=== PATIENT | male | born 1970 | race African-American/Black ===

== ENCOUNTER 2022-05-17 11:48 | Emergency (ER) | payer MEDICARE, SELFPAY ==
[2022-05-17 12:47] VITALS: BP 181/110; PULSE 78; RESP 18; TEMP 36.4; O2SAT 97
--- NOTE | 2022-05-17 13:40 | ED.GENADULT ---
HPI - General Adult General Chief complaint: Skin/Abscess/Foreign Body Stated complaint: small bites on arms Time Seen by Provider: 05/17/22 13:05 Mode of arrival: ambulatory Limitations: no limitations History of Present Illness HPI narrative: Patient lives alone, presents with itching skin rash different parts of his body right wrist, left hand dorsally, 3 spots on the abdomen and the chest 6 spots on the lower extremities. Patient reports having a lot of roaches at home. Denies history of allergy. He denies any fever, chills, nausea, vomiting. Related Data Allergies Allergy/AdvReac Type Severity Reaction Status Date / Time No Known Allergies Allergy Verified 05/17/22 13:07 Review of Systems Review of Systems: All systems reviewed & are unremarkable except as noted in HPI and below Exam Narrative: General appearance: Well-developed, well-nourished Skin: Normal color, scattered macules on the upper and lower extremities, chest and abdomen, itchy, nontender, looks like bedbug bites Head: Normocephalic, nontraumatic Eyes: Clear conjunctiva ENT: Oropharynx normal, ears normal, nose normal Neck: Supple, nontender Chest and respiratory: Airway patent, no respiratory distress, no accessory muscle use Heart: Regular rate/rhythm Abdomen: Soft, nontender, no organomegaly, quiet bowel sounds Vascular: Normal peripheral pulses, normal capillary refill. Musculoskeletal: Normal range of motion, nontender back Neurologic: Alert and oriented ?3, JEWEL STRIPPER is normal as tested, no gross motor deficit Course Vital Signs Vital signs: Vital Signs Temperature 36.4 C L 05/17/22 12:47 Pulse Rate 78 05/17/22 12:47 Respiratory Rate 18 05/17/22 12:47 Blood Pressure 181/110 H 05/17/22 12:47 Pulse Oximetry 97 05/17/22 12:47 Oxygen Delivery Room Air 05/17/22 12:47 Temperature 36.4 C L 05/17/22 12:47 Pulse Rate 78 05/17/22 12:47 Respiratory Rate 18 05/17/22 12:47 Blood Pressure 181/110 H 05/17/22 12:47 Pulse Oximetry 97 05/17/22 12:47 Oxygen Delivery Room Air 05/17/22 12:[address] [facility] Narrative Medical decision making narrative: Physical examination showing skin rash consistent with bedbug bites/roaches.. My plan to discharge patient on steroid and Zyrtec and to asking for a way to get rid of the roaches at home. Differential Diagnosis Differential Diagnosis: Acute dermatitis, bedbug bites, hay related skin rash. Vital Signs Vital Signs: Vital Signs Temperature 36.4 C L 05/17/22 12:47 Pulse Rate 78 05/17/22 12:47 Respiratory Rate 18 05/17/22 12:47 Blood Pressure 181/110 H 05/17/22 12:47 Pulse Oximetry 97 05/17/22 12:47 Oxygen Delivery Room Air 05/17/22 12:47 Temperature 36.4 C L 05/17/22 12:47 Pulse Rate 78 05/17/22 12:47 Respiratory Rate 18 05/17/22 12:47 Blood Pressure 181/110 H 05/17/22 12:47 Pulse Oximetry 97 05/17/22 12:47 Oxygen Delivery Room Air 05/17/22 12:47 Critical Care Time Critical Care Time Critical Care Time: No Discharge Plan Discharge Clinical Impression: Rash, skin Patient Disposition: Home, Self-Care Condition: Stable Instructions: Antibiotic Form, Dermatitis (ED) Additional Instructions: Return if symptoms are worsening , call your family physician for appointment, take Tylenol as as needed for aches and pain, continue home medications. Prescriptions: New prednisone 20 mg tablet 40 mg PO DAILY 5 Days Qty: 10 0RF Zyrtec 10 mg capsule 10 mg PO DAILY PRN (Reason: allergy symptoms) Qty: 30 0RF Follow-up/Referrals: PHYSICIAN NOT ON STAFF,NONSTAFF [Primary Care Provider] - Guanako Alanis MD [Phys
[2022-05-17 14:19] VITALS: BP 148/74; PULSE 90; RESP 16; O2SAT 98
== END 2022-05-17 14:20 | disposition home or self-care (01) ==
LOC: ANHED 13:56
PROVIDERS: Emergency Provider Emergency Medicine
DX: R21 Rash and other nonspecific skin eruption (principal)
CPT/HCPCS: 99283

== ENCOUNTER 2022-08-03 09:47 | Emergency (ER) | payer MEDICARE, SELFPAY ==
--- NOTE | ~2022-08-03 | XR_ITS ---
EXAMINATION: XR chest 2V DATE: 08/03/2022 10:24 INDICATION: Productive cough. TECHNIQUE: Frontal and lateral views of the chest were obtained. COMPARISON: None. FINDINGS: There is no pneumonia, pleural effusion, or pneumothorax. Cardiomegaly is noted. IMPRESSION: 1. Cardiomegaly. Reviewed, dictated and finalized at location A. IMPRESSION: 1. Cardiomegaly.
[2022-08-03 09:52] VITALS: BP 198/103; PULSE 80; RESP 16; TEMP 36.2; O2SAT 100
[2022-08-03 09:53] VITALS: PULSE 71; RESP 21; O2SAT 98
[2022-08-03 10:00] VITALS: PULSE 64; RESP 19; O2SAT 95
[2022-08-03 10:15] VITALS: PULSE 72; RESP 14; O2SAT 95
[2022-08-03 10:16] VITALS: BP 188/114; PULSE 65; RESP 22; O2SAT 99
[2022-08-03 10:20] VITALS: PULSE 78
[2022-08-03 10:23] LABS: Basophils Absolute Auto 0.1 K/mm3 (0.0-0.1); Eosinophils Absolute Auto 0.1 K/mm3 (0-0.3); Eosinophils Percent Auto 1.2 % (0-4.4); Hematocrit 41.6 % (42.0-52.0); Hemoglobin 12.9 g/dL (14.0-18.0); Immature Granulocyte Absolute 0.01 K/mm3 (0.00-0.031); Immature Granulocyte Percent A 0.2 % (0-0.5); Lymphocytes Absolute Auto 1.88 K/mm3 (0.9-3.2); Lymphocytes Percent Auto 36.3 % (18.3-44.2); Mean Corpuscular Hemoglobin 22.5 pg (26-34); Mean Corpuscular Volume 72.5 fl (80-100); Mean Platelet Volume 10.4 fl (7.4-10.4); Monocytes Absolute Auto 0.5 K/mm3 (0.1-0.6); Monocytes Percent Auto 9.7 % (2.6-8.5); Neutrophils Absolute Auto 2.7 K/mm3 (1.3-6.7); Neutrophils Percent Auto 51.6 % (45.5-73.1); Platelet Count Result 208 k/mm3 (150-375); Red Blood Count 5.74 M/mm3 (4.6-6.20); Red Cell Distribution Width 18.1 % (11.5-14.5); White Blood Count 5.2 K/mm3 (4.5-10.0)
[2022-08-03 10:40] LABS: Anisocytosis 1+ (NORMAL); Microcytosis 1+ (NORMAL); Platelet Estimate Adequate (Adequate); Schistocytes None Seen (NORMAL)
[2022-08-03 10:52] LABS: Anion Gap 5 mmol/L (8-16); Blood Urea Nitrogen 15 mg/dL (9-20); Calcium 8.9 mg/dL (8.4-10.2); Carbon Dioxide 28 mmol/L (22-30); Chloride 108 mmol/L (98-107); Estimated CRCL calculation 100 ml/min; Estimated Glomerular Filt Rate > 60; Glucose 88 mg/dL (65-110); Potassium 4.1 mmol/L (3.4-5.0); Sodium 141 mmol/L (137-145)
[2022-08-03 11:01] LABS: Influenza A QL RT-PCR Negative (Negative); Influenza B QL RT-PCR Negative (Negative); SARS-CoV-2 RNA PCR Negative (Negative)
--- NOTE | 2022-08-03 11:18 | ED.GENADULT ---
HPI - General Adult General Chief complaint: Shortness of Breath/Dyspnea Stated complaint: lung infection Time Seen by Provider: 08/03/22 09:47 History of Present Illness HPI narrative: Patient is a 52-year-old male who presents ER with concerns for pneumonia. Reports he has had a cough with subjective fever over the last 2 days. Cough is productive. No wheezing. No exertional dyspnea or shortness of breath at rest. No runny nose or sore throat. Denies chest pain or radiating discomfort. No nausea or vomiting. Denies sick contacts. Related Data Allergies Allergy/AdvReac Type Severity Reaction Status Date / Time No Known Allergies Allergy Verified 08/03/22 09:56 Review of Systems Review of Systems: All systems reviewed & are unremarkable except as noted in HPI and below Constitutional: Constitutional: Denies chills and Reports fever(s) (subjective) ENT: Denies nasal congestion and Denies sore throat Cardiovascular: Cardiovascular: Denies chest pain, Denies rapid heart rate and Denies radiating jaw, neck or arm pain Respiratory: Respiratory: Reports cough, Denies dyspnea and Denies wheezing Gastrointestinal: Gastrointestinal: Denies abdominal pain, Denies nausea and Denies vomiting PMFSH Past Medical History Medical History (Updated 08/03/22 @ 11:35 by Noe Molina MD) Hypertension Surgical History Surgical History (Updated 08/03/22 @ 11:35 by Noe Molina MD) No pertinent past surgical history Exam Narrative: GENERAL: Well-appearing, well-nourished, and in no acute distress. HEAD: Normocephalic, atraumatic. ENT: Mucous membranes moist. NECK: Supple. CHEST: Clear to auscultation. No respiratory distress. HEART: Regular rate and rhythm. Normal peripheral pulses. ABDOMEN: Soft, nontender, nondistended. EXTREMITIES: Normal range of motion. No edema. NEURO: Alert and oriented x3. PSYCH: Normal mood and affect. Course Course Emergency Course: Patient resting comfortably. Informed of results. Discussed no evidence of pneumonia. Recommend follow-up with PCP. I have offered to start patient on antihypertensive medications today but patient declines. Discussed that likely he has an enlarged heart due to the fact that he has uncontrolled blood pressures and is verbalized understanding of this but wishes to not have treatment at this time. He reports to follow-up with his primary care physician. Vital Signs Vital signs: Vital Signs Temperature 97.1 F L 08/03/22 09:52 Pulse Rate 80 08/03/22 09:52 Respiratory Rate 16 08/03/22 09:52 Blood Pressure 198/103 H 08/03/22 09:52 Pulse Oximetry 100 08/03/22 09:52 Oxygen Delivery Room Air 08/03/22 09:52 Temperature 97.1 F L 08/03/22 09:52 Pulse Rate 78 08/03/22 10:20 Respiratory Rate 22 H 08/03/22 10:16 Blood Pressure 188/114 H 08/03/22 10:16 Pulse Oximetry 99 08/03/22 10:16 Oxygen Delivery Room Air 08/03/22 09:52 Medical Decision Making Vital Signs Vital Signs: Vital Signs Temperature 97.1 F L 08/03/22 09:52 Pulse Rate 80 08/03/22 09:52 Respiratory Rate 16 08/03/22 09:52 Blood Pressure 198/103 H 08/03/22 09:52 Pulse Oximetry 100 08/03/22 09:52 Oxygen Delivery Room Air 08/03/22 09:52 Temperature 97.1 F L 08/03/22 09:52 Pulse Rate 78 08/03/22 10:20 Respiratory Rate 22 H 08/03/22 10:16 Blood Pressure 188/114 H 08/03/22 10:16 Pulse Oximetry 99 08/03/22 10:16 Oxygen Delivery Room Air 08/03/22 09:52 Lab Data 08/03/22 10:18 08/03/22 10:18 Labs: Lab Results 08/03/22 Range/Units 10:18 WBC 5.2 (4.5-10.0) K/mm3 RBC 5.74 (4.6-6.20) M/mm3 Hgb 12.9 L (14.0-18.0) g/dL Hct 41.6 L (42.0-52.0) % MCV 72.5 L (80-100) fl MCH 22.5 L (26-34) pg MCHC 31.0 L (32-36) g/dl RDW 18.1 H (11.5-14.5) % Plt Count 208 (150-375) k/mm3 MPV 10.4 (7.4-10.4) fl Immature Gran % (Auto) 0.2 (0-0.5) % Neut %
== END 2022-08-03 11:31 | disposition home or self-care (01) ==
PROVIDERS: Emergency Provider Emergency Medicine; PCP Internal Medicine Infectious Disease
DX: R05.9 Cough, unspecified (principal); I51.7 Cardiomegaly; Z20.822 Contact with and (suspected) exposure to COVID-19; I10 Essential (primary) hypertension
CPT/HCPCS: 36415; 71046; 80048; 85025; 87636; 99283

== ENCOUNTER 2022-09-29 09:45 | Emergency (ER) | payer MEDICARE, MEDICAID, SELFPAY ==
--- NOTE | ~2022-09-29 | CT_ITS ---
EXAMINATION: 1. CT brain wo con 2. CT facial bones wo con DATE: 09/29/2022 10:42 INDICATION: Fall with head injury and facial abrasions TECHNIQUE: 1. Computed tomography (CT) of the head was performed without intravenous contrast. Sagittal and belle nal reconstructions were obtained. The dose-length product was 605.33 mGy-cm. 2. CT of the facial bones and maxillofacial region was performed without intravenous contrast. Sagitt al and coronal reconstructions were obtained. The dose-length product was 669.55 mGy-cm. COMPARISON: None. FINDINGS: Head CT: No calvarial fracture. No acute intracranial hemorrhage, acute infarction or abnormal extra axial flu id collection. There is mild scattered white matter hypoattenuation consistent with chronic small ves deandra ischemic disease. Ventricles are normal and symmetric. No mass/mass effect. Maxillofacial CT: Contusion at the left forehead and supraorbital rim. No maxillofacial fractures. Specifically the ashley al bones, tobar of the orbits and paranasal sinuses, the mandible and zygomatic arches are all intact . Orbits are normal. Mild mucosal thickening in the paranasal sinuses. Bilateral mastoid air cells an d middle ear cavities are clear. IMPRESSION: 1. No calvarial or maxillofacial fractures or acute intracranial process. 2. There is mild scattered white matter hypoattenuation consistent with chronic small vessel ischemic disease. Reviewed, dictated and finalized at location B. IMPRESSION: 1. No calvarial or maxillofacial fractures or acute intracranial process. 2. There is mild scattered white matter hypoattenuation consistent with chronic small vessel ischemic disease.
[2022-09-29 09:50] VITALS: BP 173/97; PULSE 94; RESP 18; TEMP 36.5; O2SAT 99
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
[2022-09-29 10:20] VITALS: BP 177/99; PULSE 58; RESP 12; O2SAT 98
[2022-09-29 11:18] VITALS: BP 174/95; PULSE 70; RESP 18; O2SAT 100
[2022-09-29 11:19] VITALS: BP 170/90; PULSE 60; RESP 16; O2SAT 99
== END 2022-09-29 11:19 | disposition home or self-care (01) ==
LOC: ANHED 11:18
PROVIDERS: Emergency Provider Physician Assistant; PCP Internal Medicine Infectious Disease
DX: S00.81XA Abrasion of other part of head, initial encounter (principal); I10 Essential (primary) hypertension; X58.XXXA Exposure to other specified factors, initial encounter
CPT/HCPCS: 70450; 70486; 99284

== ENCOUNTER 2022-11-22 13:46 | Emergency (ER) | payer MEDICARE, MEDICAID, SELFPAY ==
[2022-11-22 13:47] VITALS: BP 164/99; PULSE 86; RESP 17; TEMP 36.5; O2SAT 98
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
[2022-11-22] MEDS: ACETAMINOPHEN 500 MG TABLET 1000 MG PO (14:31)
[2022-11-22] MEDS: KETOROLAC 30 MG/ML VIAL (*BKC) IM (14:32)
[2022-11-22 15:29] VITALS: BP 151/102; PULSE 64; RESP 18; O2SAT 100
== END 2022-11-22 16:02 | disposition home or self-care (01) ==
PROVIDERS: Emergency Provider Student in an Organized Health Care Education/Training Program; PCP Internal Medicine Infectious Disease
DX: M54.16 Radiculopathy, lumbar region (principal); M54.32 Sciatica, left side; I10 Essential (primary) hypertension
CPT/HCPCS: 96372; 99283; A9270; J1885

== ENCOUNTER 2022-11-30 07:50 | Emergency (ER) | payer MEDICARE, MEDICAID, SELFPAY ==
--- NOTE | ~2022-11-30 | XR_ITS ---
EXAMINATION: XR lumbar spine 2-3V DATE: 11/30/2022 08:57 INDICATION: Left sciatica TECHNIQUE: Anteroposterior and lateral views of the lumbar spine, and cone-down lateral view of the l umbosacral junction were obtained. COMPARISON: None. FINDINGS: Bone alignment is normal. There is no fracture. There is moderate loss of intervertebral di sc space height at L5-S1 and mild loss of intervertebral disc space height throughout the remainder o f the lumbar spine. Small degenerative osteophytes project from the anterior endplates of multiple ve rtebral bodies. There is moderate facet joint osteoarthritis at L5-S1. Mild osteoarthritis is noted i n the hips. IMPRESSION: 1. Mild to moderate lumbar spondylosis without acute findings. Reviewed, dictated and finalized at location A.
[2022-11-30 08:04] VITALS: BP 182/106; PULSE 95; RESP 18; TEMP 36.4; O2SAT 99
--- NOTE | 2022-11-30 08:46 | ED.BACK ---
HPI - Back Pain/Injury General Chief Complaint: Back Pain/Injury Stated Complaint: Low back pain Time Seen by Provider: 11/30/22 08:19 History of Present Illness HPI Narrative: Patient is a 52-year-old male who presents ER with worsening back pain. He was seen recently in the ER and prescribed ibuprofen and Tylenol. He had been having a left-sided lumbar radiculopathy. Denies any trauma. Reports she started having some discomfort in his groin and was told to come back this happened. Reports he is in fact able to urinate. He is able to sense when he needs to urinate. He has no pain in his testicles. No dysuria. He has no abdominal discomfort or flank pain. Denies any focal lower extremity weakness but does report that his legs feel bleach maker when he is walking. No fevers or chills or sweats. Related Data Allergies Allergy/AdvReac Type Severity Reaction Status Date / Time No Known Allergies Allergy Verified 11/30/22 07:52 Review of Systems Constitutional: Constitutional: Denies chills, Denies fatigue and Denies fever(s) Genitourinary: Genitourinary: Denies hematuria, Denies dysuria, Denies penile discharge, Denies testicular pain and Denies urinary frequency Comments: Increased difficulty starting stream Musculoskeletal: Musculoskeletal: Reports back pain, Denies arthralgias, Denies joint swelling and Denies muscle cramps Integumentary/Breasts: Skin/Breast: Denies erythema and Denies rash Neurologic: Denies focal weakness and Reports numbness (Radiating down left leg) [facility] Past Medical History Medical History (Updated 11/30/22 @ 10:25 by Noe Molina MD) Hypertension Surgical History Surgical History (Updated 08/03/22 @ 11:35 by Noe Molina MD) No pertinent past surgical history Exam Narrative: GENERAL: Well-appearing, well-nourished, and in no acute distress. HEAD: Normocephalic, atraumatic. Back: No reproducible midline tenderness to T/L-spine. No reproducible paraspinal muscular tenderness of the T/L-spine. No pain in the SI region or gluteal regions. : Normal appearing external genitalia with circumcised penis. No urethral discharge. No testicular tenderness. No inguinal hernia. EXTREMITIES: Normal range of motion. No edema. Able to stand with normal power. SKIN: Warm, dry, no rash. NEURO: Sharp and soft touch intact left lower extremity. Alert and oriented x3. PSYCH: Normal mood and affect. Course Vital Signs Vital signs: Vital Signs Temperature 97.6 F 11/30/22 08:04 Pulse Rate 95 11/30/22 08:04 Respiratory Rate 18 11/30/22 08:04 Blood Pressure 182/106 H 11/30/22 08:04 Pulse Oximetry 99 11/30/22 08:04 Oxygen Delivery Room Air 11/30/22 08:04 Temperature 97.6 F 11/30/22 08:04 Pulse Rate 95 11/30/22 08:04 Respiratory Rate 18 11/30/22 08:04 Blood Pressure 182/106 H 11/30/22 08:04 Pulse Oximetry 99 11/30/22 08:04 Oxygen Delivery Room Air 11/30/22 08:04 MDM - Back Pain/Injury MDM Narrative Medical decision making narrative: -Presentation: 52-year-old male presenting to the ER with discomfort moving from back into groin and leg. -DDX includes but is not limited to: Sciatica, cauda equina, radiculopathy -Co-morbidities complicating care: Spinal stenosis, obesity -Social determinants of health: No PCP -External Chart Review: Previous ER visit -Hx from independent Sources: Patient -Independent interpretation of studies: Urinalysis with ketones and 1+ protein. X-ray without acute fracture. -Discussion of Management/Consultants: none -Dx tests considered but not ordered: none -Procedures: none -Interventions: none -Shared decision making / Disposition: We will add on muscle relaxers. Patient has a physician for her spinal stenosis located in [place] that he can follow-up with. -RX: Cyclobenzaprine Lab Data Labs: Lab Results 11/30/22 Range/Units 08:47 Urine Color Yellow (Yellow)
[2022-11-30 09:05] LABS: Appearance Urine Clear (Clear); Bacteria Urine None Seen /hpf; Bilirubin Urine Negative (Negative); Blood Urine Trace (Negative); Color Urine Yellow (Yellow); Glucose Urine UA Negative (Negative); Ketones Urine Trace mg/dL (Negative); Leukocyte Esterase Ur Negative LEU/UL (Negative); Nitrate Urine Negative (Negative); Non Pathogenic Casts 0-2; Protein Urine 1+ mg/dL (Negative); RBC Urine 0-2 /hpf (0-2); Specific Grav Ur 1.023 (1.001-1.035); Squamous Epithelial Cell Urine None seen /hpf (Few); Urobilinogen Urine 0.2 mg/dL (<2.0); WBC Urine 0-5 /hpf
[2022-11-30 09:12] LABS: Add Urine Microscopic? YES
== END 2022-11-30 10:32 | disposition home or self-care (01) ==
PROVIDERS: Emergency Provider Emergency Medicine; PCP Internal Medicine Infectious Disease
DX: M54.32 Sciatica, left side (principal); I10 Essential (primary) hypertension; M47.816 Spondylosis without myelopathy or radiculopathy, lumbar region
CPT/HCPCS: 72100; 81001; 99283

== ENCOUNTER 2023-03-24 10:48 | Emergency (ER) | payer MEDICARE, SELFPAY ==
--- NOTE | ~2023-03-24 | XR_ITS ---
EXAMINATION: XR chest 2V 03/24/2023 12:49 INDICATION: Chest pain PROCEDURE: 2 view chest COMPARISON: 08/03/2022 FINDINGS: The lungs are clear. The cardiomediastinal silhouette is within normal limits. There are no pleural effusions. There is no pneumothorax suspected. There is dextroscoliosis of the thoracic spine. IMPRESSION: 1: NO ACUTE CARDIOPULMONARY DISEASE. Reviewed, dictated and finalized at location L. ER PLANNER
--- NOTE | 2023-03-24 10:49 | ECG_ITS ---
Measurements Intervals [place] Rate: 76 P: 49 MS: 149 QRS: 38 QRSD: 89 T: 40 QT: 375 QTc: 423 Interpretive Statements SINUS RHYTHM WITH SINUS ARRHYTHMIA POSSIBLE LEFT ATRIAL ENLARGEMENT [-0.1mV P WAVE IN V1/V2] INCOMPLETE RIGHT BUNDLE BRANCH BLOCK NONSPECIFIC T-WAVE ABNORMALITY NO PREVIOUS ECG AVAILABLE FOR COMPARISON Electronically Signed On 03-24-2023 16:02:25 PALEOLOGIST by Te Hoover M.D.
[2023-03-24 10:56] VITALS: BP 146/81; PULSE 78; RESP 16; TEMP 36.5; O2SAT 98
[2023-03-24 11:13] LABS: Basophils Absolute Auto 0.1 K/mm3 (0.0-0.1); Basophils Percent Auto 0.9 % (0.2-1.2); Eosinophils Percent Auto 0.4 % (0-4.4); Hematocrit 44.2 % (42.0-52.0); Hemoglobin 13.5 g/dL (14.0-18.0); Immature Granulocyte Absolute 0.01 K/mm3 (0.00-0.031); Immature Granulocyte Percent A 0.2 % (0-0.5); Lymphocytes Absolute Auto 1.37 K/mm3 (0.9-3.2); Lymphocytes Percent Auto 24.7 % (18.3-44.2); Mean Corpuscular HGB Conc 30.5 g/dl (32-36); Mean Corpuscular Hemoglobin 22.1 pg (26-34); Mean Corpuscular Volume 72.2 fl (80-100); Mean Platelet Volume 10.7 fl (7.4-10.4); Monocytes Absolute Auto 0.4 K/mm3 (0.1-0.6); Monocytes Percent Auto 6.5 % (2.6-8.5); Neutrophils Absolute Auto 3.7 K/mm3 (1.3-6.7); Neutrophils Percent Auto 67.3 % (45.5-73.1); Platelet Count Result 196 k/mm3 (150-375); Red Blood Count 6.12 M/mm3 (4.6-6.20); Red Cell Distribution Width 18.5 % (11.5-14.5); White Blood Count 5.5 K/mm3 (4.5-10.0)
[2023-03-24 11:26] LABS: INR 0.9; Prothrombin Time 12.9 Seconds (11.1-14.7)
[2023-03-24 11:27] LABS: Partial Thromboplastin Time 27.8 SECONDS (22.3-36.8)
[2023-03-24 11:37] LABS: Alanine Aminotransferase 24 U/L (6-50); Albumin Level 4.3 g/dL (3.5-5.1); Alkaline Phosphatase 76 U/L (38-126); Anion Gap 9 mmol/L (8-16); Aspartate Amino Transferase 31 U/L (17-59); Bilirubin,Total 0.5 mg/dL (0.2-1.3); Blood Urea Nitrogen 16 mg/dL (9-20); Calcium 9.4 mg/dL (8.4-10.2); Carbon Dioxide 27 mmol/L (22-30); Chloride 105 mmol/L (98-107); Estimated CRCL calculation 79 ml/min; Estimated Glomerular Filt Rate > 60; Glucose 115 mg/dL (65-110); Lipase 55 U/L (23-300); Potassium 3.7 mmol/L (3.4-5.0); Sodium 141 mmol/L (137-145)
[2023-03-24 11:51] LABS: Troponin I < 0.012 ng/mL (0.000-0.034)
--- NOTE | 2023-03-24 14:04 | PC.NURSE ---
pt to back to draw 3 hour troponin, states he is leaving due to wait
== END 2023-03-24 14:04 | disposition left against medical advice (07) ==
LOC: ANHED 14:25
PROVIDERS: Emergency Provider Emergency Medicine; PCP Internal Medicine
DX: R07.9 Chest pain, unspecified (principal); Z53.21 Procedure and treatment not carried out due to patient leaving prior to being seen by health care provider
CPT/HCPCS: 36415; 71046; 80053; 83690; 84484; 85025; 85610; 85730; 93005; 99199

== ENCOUNTER 2023-05-20 10:48 | Emergency (ER) | payer OTHER, SELFPAY ==
--- NOTE | ~2023-05-20 | XR_ITS ---
Right wrist Technique: PA, oblique, lateral, and ulnar deviation views were obtained. Clinical History: Pain Findings: No acute fracture or dislocation is seen. Osseous alignment is anatomic. Joint spaces are p reserved. Soft tissues are unremarkable. Impression: Unremarkable right wrist radiographs. Reviewed, dictated and finalized at location . COACH Impression: Unremarkable right wrist radiographs.
--- NOTE | ~2023-05-20 | XR_ITS ---
Right Hand Technique: PA, oblique, and lateral views were obtained. Clinical History: Pain Findings: No acute fracture or dislocation is seen. Old, healed fracture of the fifth metacarpal note d. Osseous alignment is anatomic. Joint spaces are preserved. Soft tissues are unremarkable. Impression: No acute abnormality. Old, healed right fifth metacarpal fracture deformity. Reviewed, dictated and finalized at location . L REAMER Impression: No acute abnormality. Old, healed right fifth metacarpal fracture deformity.
--- NOTE | ~2023-05-20 | US_ITS ---
EXAMINATION: US venous doppler UE RT DATE: 05/20/2023 12:35 INDICATION: Right upper limb swelling and pain TECHNIQUE: Grayscale ultrasound images without and with compression and Doppler ultrasound images of the right upper extremity veins were obtained. COMPARISON: None. FINDINGS: The right internal jugular vein, subclavian vein, axillary vein, basilic vein, cephalic vein, radial vein, and ulnar vein are patent. There is brachial vein thrombosis. IMPRESSION: 1. Brachial vein thrombosis. These findings were discussed with Ghada Cao PA-C in the Emergenc y Department at 1243 hours on 05/20/2023. Reviewed, dictated and finalized at location B. EOTYPE FINISHER IMPRESSION: 1. Brachial vein thrombosis. These findings were discussed with Ghada Cao PA-C in the Emergency Department at 1243 hours on 05/20/2023.
--- NOTE | ~2023-05-20 | XR_ITS ---
Right elbow Technique: AP, oblique, and lateral views were obtained. Clinical History: Pain Findings: No acute fracture or dislocation is seen. Osseous alignment is anatomic. Joint spaces are p reserved. There is no displacement of the fat pads, and soft tissues are unremarkable. Impression: Unremarkable radiographs. Reviewed, dictated and finalized at [facility]. Y SEPARATOR HARD Impression: Unremarkable radiographs.
[2023-05-20 10:53] VITALS: BP 157/90; PULSE 92; RESP 20; TEMP 37; O2SAT 95
--- NOTE | 2023-05-20 11:18 | ED.UPPEXIN ---
HPI - Extremity Injury (Upper) General Chief Complaint: Extremity Injury, Upper Stated Complaint: R ARM INJURY Time Seen by Provider: 05/20/23 11:12 Source: patient Mode of arrival: ambulatory Limitations: no limitations History of Present Illness HPI narrative: This is a 53-year-old male that presents to the emergency department for right wrist injury sustained a couple of days prior to arrival. Reports he hit his hand on a stool. Reports since he has had pain in the right hand and wrist that is radiating up into his elbow. Worse with movement and relieved with rest. He has been taking Tylenol for pain. Denies decreased ROM or numbness. Related Data Allergies Allergy/AdvReac Type Severity Reaction Status Date / Time No Known Allergies Allergy Verified 05/20/23 11:17 Review of Systems Review of Systems: CONSTITUTIONAL: Denies fever SKIN: Denies rash MUSCULOSKELETAL: Reports joint pain, and myalgia. NEUROLOGIC: Denies numbness, or weakness. All systems reviewed & are unremarkable except as noted in HPI and below PMFSH Past Medical History Medical History (Updated 05/20/23 @ 14:09 by Ghada Cao PA-C) Hypertension Surgical History Surgical History (Updated 08/03/22 @ 11:35 by Noe Molina MD) No pertinent past surgical history Social History Social History (Updated 05/20/23 @ 11:19 by Ghada Cao PA-C) Smoking status: Never smoker Exam Narrative: GENERAL: Well-appearing, well-nourished, and in no acute distress. HEAD: Normocephalic, atraumatic. EYES: EOMI. EXTREMITIES: Normal range of motion. No obvious deformity. Mild edema about the right upper forearm. Normal radial pulse. Normal sensation SKIN: Warm, dry, no rash. NEURO: No focal deficits. Alert and oriented x3. PSYCH: Normal mood and affect Course Course Emergency Course: Patient updated on his workup and agrees with plan of care Vital Signs Vital signs: Vital Signs Temperature 98.6 F 05/20/23 10:53 Pulse Rate 92 05/20/23 10:53 Respiratory Rate 20 05/20/23 10:53 Blood Pressure 157/90 H 05/20/23 10:53 Pulse Oximetry 95 05/20/23 10:53 Temperature 98.6 F 05/20/23 10:53 Pulse Rate 92 05/20/23 10:53 Respiratory Rate 20 05/20/23 10:53 Blood Pressure 157/90 H 05/20/23 10:53 Pulse Oximetry 95 05/20/23 10:53 MDM - Extremity Injury (Upper) MDM Narrative Medical decision making narrative: Patient presents to the emergency department for right hand and wrist injury sustained a couple of days prior to arrival. He is neurovascularly intact. Right wrist, hand, and elbow x-rays are without acute osseous abnormalities. Patient also endorsing some pain in his forearm with some swelling noted. Upper extremity venous Doppler is positive for DVT in the brachial vein. Spoke with Dr. Alanis about patient and workup who will follow up. Patient will be started on Xarelto. He was given warnings to return to the ER Differential Diagnosis Differential diagnosis: Likely sprain and strain of wrist, fracture of wrist, fracture of hand and other (DVT, superficial venous thrombosis) Lab Data Attestation: I reviewed the patient's lab results. 05/20/23 13:25 05/20/23 13:25 Labs: Lab Results 05/20/23 Range/Units 13:25 WBC 6.8 (4.5-10.0) K/mm3 RBC 6.14 (4.6-6.20) M/mm3 Hgb 13.6 L (14.0-18.0) g/dL Hct 43.9 (42.0-52.0) % MCV 71.5 L (80-100) fl MCH 22.1 L (26-34) pg MCHC 31.0 L (32-36) g/dl RDW 18.3 H (11.5-14.5) % Plt Count 195 (150-375) k/mm3 MPV 11.3 H (7.4-10.4) fl Immature Gran % (Auto) 0.1 (0-0.5) % Neut % (Auto) 70.5 (45.5-73.1) % Lymph % (Auto) 20.8 (18.3-44.2) % [place] % (Auto) 7.0 (2.6-8.5) % Eos % (Auto) 1.0 (0-4.4) % Baso % (Auto) 0.6 (0.2-1.2) % Lymph # (Auto) 1.42 (0.9-3.2) K/mm3 [place] # (Auto) 0.5 (0.1-0.6) K/mm3 Eos # (Auto) 0.1 (0-0.3) K/mm3 Baso # (Auto) 0.0 (0.0-0.1) K/mm3 Abs Immat Gr
[2023-05-20] MEDS: IBUPROFEN 600 MG TABLET PO (11:22)
[2023-05-20 13:45] LABS: Basophils Percent Auto 0.6 % (0.2-1.2); Eosinophils Absolute Auto 0.1 K/mm3 (0-0.3); Hematocrit 43.9 % (42.0-52.0); Hemoglobin 13.6 g/dL (14.0-18.0); Immature Granulocyte Absolute 0.01 K/mm3 (0.00-0.031); Immature Granulocyte Percent A 0.1 % (0-0.5); Lymphocytes Absolute Auto 1.42 K/mm3 (0.9-3.2); Lymphocytes Percent Auto 20.8 % (18.3-44.2); Mean Corpuscular Hemoglobin 22.1 pg (26-34); Mean Corpuscular Volume 71.5 fl (80-100); Mean Platelet Volume 11.3 fl (7.4-10.4); Monocytes Absolute Auto 0.5 K/mm3 (0.1-0.6); Neutrophils Absolute Auto 4.8 K/mm3 (1.3-6.7); Neutrophils Percent Auto 70.5 % (45.5-73.1); Platelet Count Result 195 k/mm3 (150-375); Red Blood Count 6.14 M/mm3 (4.6-6.20); Red Cell Distribution Width 18.3 % (11.5-14.5); White Blood Count 6.8 K/mm3 (4.5-10.0)
[2023-05-20 13:55] LABS: INR 0.9; Partial Thromboplastin Time 27.2 SECONDS (22.3-36.8); Prothrombin Time 12.7 Seconds (11.1-14.7)
[2023-05-20 13:56] LABS: Anion Gap 4 mmol/L (8-16); Blood Urea Nitrogen 15 mg/dL (9-20); Calcium 8.9 mg/dL (8.4-10.2); Carbon Dioxide 28 mmol/L (22-30); Chloride 107 mmol/L (98-107); Estimated Glomerular Filt Rate > 60; Glucose 92 mg/dL (65-110); Potassium 3.9 mmol/L (3.4-5.0); Sodium 139 mmol/L (137-145)
[2023-05-20 14:18] LABS: Anisocytosis 2+ (NORMAL); Hypochromasia 1+ (NORMAL); Platelet Estimate Adequate (Adequate); Schistocytes None Seen (NORMAL)
== END 2023-05-20 14:18 | disposition home or self-care (01) ==
PROVIDERS: Emergency Provider Physician Assistant
DX: I82.621 Acute embolism and thrombosis of deep veins of right upper extremity (principal); I10 Essential (primary) hypertension
CPT/HCPCS: 36415; 73080; 73110; 73130; 80048; 85025; 85610; 85730; 93971; 99284; A9270

== ENCOUNTER 2023-06-17 10:47 | Emergency (ER) | payer OTHER, SELFPAY ==
[2023-06-17 11:23] VITALS: BP 127/87; PULSE 82; RESP 16; TEMP 36.5; O2SAT 100
--- NOTE | 2023-06-17 14:13 | ED.GENADULT ---
HPI - General Adult General Chief complaint: Skin/Abscess/Foreign Body Stated complaint: ?acne on back/painful and stinging Time Seen by Provider: 06/17/23 13:16 History of Present Illness HPI narrative: 53-year-old male presenting to the emergency department for evaluation of rash his back. Patient states over the last week he has had increased itching rash on his back. Patient does not see a physician for this previously. Patient denies diabetes and denies any prior history of folliculitis or cellulitis Related Data Allergies Allergy/AdvReac Type Severity Reaction Status Date / Time No Known Allergies Allergy Verified 06/17/23 11:35 Review of Systems Review of Systems: All systems reviewed & are unremarkable except as noted in HPI and below PMFSH Past Medical History Medical History (Updated 06/17/23 @ 14:16 by Alex Narayan MD) Hypertension Surgical History Surgical History (Updated 08/03/22 @ 11:35 by Noe Molina MD) No pertinent past surgical history Social History Social History (Updated 05/20/23 @ 11:19 by Ghada Cao PA-C) Smoking status: Never smoker Exam Narrative: APPEARANCE: Well appearing, no pain, no distress, well-nourished. HEAD: normocephalic, atraumatic. EYES: PERRLA/EOMI, conjunctivae clear. NOSE: Normal no drainage EARS:TMS clear with good light reflex. THROAT: Pharynx clear, no exudate. NECK: Supple. No adenopathy, no masses. RESPIRATORY: Airway patent, respirations nonlabored. Clear to auscultation bilaterally, no rales, rhonchi, wheezing. CARDIOVASCULAR: Regular rate and rhythm without murmurs rubs or gallops. ABDOMINAL: Soft, nontender, nondistended, normal bowel sounds MUSCULOSKELETAL: Moves all extremities. Strength/ROM intact, No edema, No calf tenderness. NEURO: Alert. Cranial nerves II through XII intact. Grossly intact SKIN: Folliculitis appearing rash on upper and mid back Course Course Emergency Course: Patient was treated for folliculitis and discharged home with Keflex Vital Signs Vital signs: Vital Signs Temperature 97.7 F 06/17/23 11:23 Pulse Rate 82 06/17/23 11:23 Respiratory Rate 16 06/17/23 11:23 Blood Pressure 127/87 06/17/23 11:23 Pulse Oximetry 100 06/17/23 11:23 Oxygen Delivery Room Air 06/17/23 11:23 Temperature 97.5 F L 06/17/23 14:36 Pulse Rate 70 06/17/23 14:36 Respiratory Rate 20 06/17/23 14:36 Blood Pressure 145/93 H 06/17/23 14:36 Pulse Oximetry 100 06/17/23 14:36 Oxygen Delivery Room Air 06/17/23 11:23 Medical Decision Making MDM Narrative Medical decision making narrative: 53-year-old male presents emergency department for evaluation of a rash on his back. Rash is consistent with folliculitis. Differential Diagnosis Differential Diagnosis: Folliculitis, cellulitis, MRSA Vital Signs Vital Signs: Vital Signs Temperature 97.7 F 06/17/23 11:23 Pulse Rate 82 06/17/23 11:23 Respiratory Rate 16 06/17/23 11:23 Blood Pressure 127/87 06/17/23 11:23 Pulse Oximetry 100 06/17/23 11:23 Oxygen Delivery Room Air 06/17/23 11:23 Temperature 97.5 F L 06/17/23 14:36 Pulse Rate 70 06/17/23 14:36 Respiratory Rate 20 06/17/23 14:36 Blood Pressure 145/93 H 06/17/23 14:36 Pulse Oximetry 100 06/17/23 14:36 Oxygen Delivery Room Air 06/17/23 11:23 Discharge Plan Discharge Clinical Impression: Folliculitis Patient Disposition: Home, Self-Care Condition: Stable Instructions: Antibiotic Form, Folliculitis (ED) Additional Instructions: Antibiotic as directed until completed. Have close follow-up with your primary care physician. If you have any worsening symptoms and please call or return to the emergency department. Prescriptions: New cephalexin 500 mg capsule 500 mg PO Q6H 7 Days Qty: 28 0RF No Action acetaminophen [Tylenol] 325 mg capsule 650 mg PO Q6H PRN (Reason: pain) Qty: 30 0RF ibuprofen 600 mg tabl
[2023-06-17] MEDS: CEPHALEXIN 500 MG CAPSULE PO (14:35)
[2023-06-17 14:36] VITALS: BP 145/93; PULSE 70; RESP 20; TEMP 36.4; O2SAT 100
== END 2023-06-17 14:38 | disposition home or self-care (01) ==
PROVIDERS: Emergency Provider Emergency Medicine
DX: L73.9 Follicular disorder, unspecified (principal); I11.0 Hypertensive heart disease with heart failure
CPT/HCPCS: 99283; A9270

== ENCOUNTER 2023-06-26 11:49 | Emergency (ER) | payer OTHER, SELFPAY ==
[2023-06-26 11:55] VITALS: BP 146/100; PULSE 100; RESP 18; TEMP 36.8; O2SAT 98
--- NOTE | 2023-06-26 12:14 | PC.NURSE ---
pt requested resources for a homeless long-term. this rn provided a list of homeless shelters from the community resources binder.
--- NOTE | 2023-06-26 12:20 | PC.NURSE ---
upon pt evaluation, pt stated that he was wanting to be seen here today because people are poking me with needles at the bus stop and on the bus . Pt stated that he was fearful at this time of what could be in the needles. Pt denies SI/ HI. pt denies hearing/ smelling/seeing/ feeling things that are not there.
--- NOTE | 2023-06-26 12:44 | ED.SKABFB ---
HPI - Skin/Abscess/Foreign Bdy General Chief complaint: Skin/Abscess/Foreign Body Stated complaint: bumps Time Seen by Provider: 06/26/23 12:12 Source: patient Mode of arrival: ambulatory Limitations: no limitations History of Present Illness HPI narrative: This is a 53 year old male that presents to the ER for rash present over the last couple of weeks. Reports the rash is itchy. He was prescribed Cephalexin for folliculitis. He did not finish this prescription. Denies fevers. Related Data Allergies Allergy/AdvReac Type Severity Reaction Status Date / Time No Known Allergies Allergy Verified 06/17/23 11:35 Review of Systems Review of Systems: CONSTITUTIONAL: Denies fever SKIN: Reports rash and itching. All systems reviewed & are unremarkable except as noted in HPI and below PMFSH Past Medical History Medical History (Updated 06/26/23 @ 12:45 by Ghada Cao PA-C) Hypertension Surgical History Surgical History (Updated 08/03/22 @ 11:35 by Noe Molina MD) No pertinent past surgical history Social History Social History (Updated 05/20/23 @ 11:19 by Ghada Cao PA-C) Smoking status: Never smoker Exam Narrative: GENERAL: Well-appearing, well-nourished, and in no acute distress. HEAD: Normocephalic, atraumatic. EYES: EOMI. CHEST: No respiratory distress. HEART: Regular rate EXTREMITIES: Normal range of motion. No edema. SKIN: Warm, dry. Small excoriated papules in the arms and in the web spaces NEURO: No focal deficits. Alert and oriented x3. PSYCH: Normal mood and affect Course Course Emergency Course: Patient agrees with plan of care Vital Signs Vital signs: Vital Signs Temperature 98.2 F 06/26/23 11:55 Pulse Rate 100 06/26/23 11:55 Respiratory Rate 18 06/26/23 11:55 Blood Pressure 146/100 H 06/26/23 11:55 Pulse Oximetry 98 06/26/23 11:55 Oxygen Delivery Room Air 06/26/23 11:55 Temperature 98.2 F 06/26/23 11:55 Pulse Rate 100 06/26/23 11:55 Respiratory Rate 18 06/26/23 11:55 Blood Pressure 146/100 H 06/26/23 11:55 Pulse Oximetry 98 06/26/23 11:55 Oxygen Delivery Room Air 06/26/23 11:55 MDM - Skin/Abscess/Foreign Bdy MDM Narrative Medical decision making narrative: Patient presents to the ER for rash present over the last couple of weeks. Reports itchy rash. He was seen in the ER and diagnosed with folliculitis. He did not finish his antibiotics. Rash consistent with possible scabies with being in between the web spaces. Will be treated with Permethrin. He was instructed to follow up with PCP. He was given warnings to return to the ER Differential Diagnosis Differential diagnosis: Likely urticaria, cellulitis, eczema, insect bites and other (scabies) Critical Care Time Critical Care Time Critical Care Time: No Discharge Plan Discharge Clinical Impression: Scabies Patient Disposition: Home, Self-Care Condition: Stable Instructions: Scabies (ED) Additional Instructions: Return to the emergency department if you experience fever, redness and swelling of your wounds, abnormal drainage from your wounds, or any other symptoms that are concerning to you Take a Pepcid and Claritin daily. Benadryl as needed for severe itching. Apply permethrin cream as prescribed Follow-up with primary care doctor Prescriptions: New permethrin 5 % cream 1 applic topical Q14D Qty: 60 0RF Rx Instructions: apply second treatment 14 days after first treatment if live lice remain. Cream must stay on your skin for 8 hours before bathing No Action acetaminophen [Tylenol] 325 mg capsule 650 mg PO Q6H PRN (Reason: pain) Qty: 30 0RF ibuprofen 600 mg tablet 600 mg PO Q6H PRN (Reason: pain) Qty: 30 0RF cyclobenzaprine 10 mg tablet 10 mg PO TID PRN (Reason: muscle spasm) Qty: 20 0RF Xarelto DVT-PE Treat 30d Start 15 mg (42)- 20 mg (9) tablets,dose pack See Rx Instructions .ROUTE .COMPLEX Qt
== END 2023-06-26 13:13 | disposition home or self-care (01) ==
LOC: ANHED 13:01
PROVIDERS: Emergency Provider Physician Assistant; Referring Provider Emergency Medicine
DX: B86 Scabies (principal); I10 Essential (primary) hypertension
CPT/HCPCS: 99283

== ENCOUNTER 2023-07-02 09:49 | Emergency (ER) | payer OTHER, SELFPAY ==
--- NOTE | ~2023-07-02 | CT_ITS ---
EXAMINATION: CT abdomen pelvis wo con DATE: 07/02/2023 11:29 INDICATION: Left abdominal pain. Diarrhea. TECHNIQUE: Computed tomography (CT) of the abdomen and pelvis was performed without intravenous contr ast. Automated exposure control and iterative reconstruction technique were employed. The dose-length product was 967.15 mGy-cm. COMPARISON: None. FINDINGS: The visualized portions of the lung bases demonstrate minimal atelectasis. No pleural effus ion. The heart size is normal. There are coronary artery calcifications. No pericardial effusion. The re is a 4 mm cyst in the liver. The spleen, gallbladder, pancreas, adrenal glands, and kidneys are no rmal. There is no urolithiasis. The prostate is mildly enlarged. There is diverticulosis of the colon without evidence of diverticulitis. There are no dilated loops of bowel. The appendix is normal. The re are no pathologically enlarged lymph nodes. There is no free intraperitoneal fluid. There is thora columbar levoscoliosis. There is severe lower lumbar spondylosis. IMPRESSION: 1. No etiology for the patient's symptoms. Reviewed, dictated and finalized at location A.
[2023-07-02 09:55] VITALS: BP 166/80; PULSE 93; RESP 16; TEMP 36.3; O2SAT 100
--- NOTE | 2023-07-02 10:35 | ED.ABDPAIN ---
HPI - Abdominal Pain General Chief Complaint: Abdominal Pain Stated Complaint: abd pain Time Seen by Provider: 07/02/23 09:56 Source: patient Mode of arrival: ambulatory Limitations: no limitations History of Present Illness HPI narrative: Patient is a 53 y/o male who presents to the ED with c/o L sided abdominal pain. Patient is somewhat a poor historian. He reports having intermittent L sided abdominal pain over the last couple weeks. He feels the abdominal pain started after he began antibiotics for folliculitis, unsure exactly when this was prescribed for him. He saw his doctor on Thursday and discussed the abdominal pain and was recommended to come to the ED for further evaluation. Patient denies any current abdominal pain. He does report recent soft stools and an episode of difficulty urinating this week, denies rectal bleeding or melena. Denies N/V, fevers, hematuria. Related Data Allergies Allergy/AdvReac Type Severity Reaction Status Date / Time No Known Allergies Allergy Verified 06/17/23 11:35 Review of Systems Review of Systems: CONSTITUTIONAL: Denies fever, chills, or sweats. CARDIOVASCULAR: Denies chest pain RESPIRATORY: Denies dyspnea. GASTROINTESTINAL: See HPI. GENITOURINARY: See HPI MUSCULOSKELETAL: Denies back pain All systems reviewed & are unremarkable except as noted in HPI and below PMFSH Past Medical History Medical History Hypertension Surgical History Surgical History No pertinent past surgical history Social History Social History Smoking status: Never smoker Exam Narrative: GENERAL: Mildly unkempt, obese with BMI of 32.8, non-toxic, in no acute distress. HEAD: Normocephalic, atraumatic. RESPIRATORY: Airway patent, respirations nonlabored. Clear to auscultation bilaterally, no rales, rhonchi, wheezing. CARDIOVASCULAR: Regular rate and rhythm ABDOMINAL: Soft, mild tenderness in L mid and lower abdomen, no rebound tenderness, nondistended. Normoactive BS. MUSCULOSKELETAL: Moves all extremities. No gross deformities. SKIN: Warm, dry, normal color. NEURO: A&O X3. Speech clear. PSYCHIATRIC: Flat affect. Speech slightly pressured, short answers. Patient is pleasant however, normal interaction. Course Vital Signs Vital signs: Vital Signs Temperature 97.4 F L 07/02/23 09:55 Pulse Rate 93 07/02/23 09:55 Respiratory Rate 16 07/02/23 09:55 Blood Pressure 166/80 H 07/02/23 09:55 Pulse Oximetry 100 07/02/23 09:55 Oxygen Delivery Room Air 07/02/23 09:55 Temperature 97.4 F L 07/02/23 09:55 Pulse Rate 93 07/02/23 09:55 Respiratory Rate 16 07/02/23 09:55 Blood Pressure 166/80 H 07/02/23 09:55 Pulse Oximetry 100 07/02/23 09:55 Oxygen Delivery Room Air 07/02/23 09:55 MDM - Abdominal Pain MDM Narrative Medical decision making narrative: Patient presented to ED with a couple weeks of intermittent left-sided abdominal pain, diarrhea. Vitals are stable upon arrival. Patient in no acute distress. He does have some left lower quadrant tenderness on exam. Laboratory studies are fairly unremarkable. CBC unremarkable, no leukocytosis, chronic minimal anemia. CMP with hypokalemia at 3.2. Replaced orally. Mag WNL. Normal kidney function. Stable lfts and lipase. UA with trace ketones, some proteinuria, no evidence of infection. CT abd/pelvis obtained and unremarkable, no significant abnormalities. Does show diverticulosis, but no diverticulitis. Patient updated on lab and imaging results. He has remained stable throughout ED stay, continues to deny any current abdominal pain. Recommended that patient utilize Tylenol and ibuprofen as needed for recurrent pain, have close follow-up with primary care doctor for further evaluation. Given return precautions should symptoms worse
[2023-07-02 10:53] LABS: Basophils Percent Auto 0.2 % (0.2-1.2); Eosinophils Absolute Auto 0.1 K/mm3 (0-0.3); Eosinophils Percent Auto 2.2 % (0-4.4); Hematocrit 43.5 % (42.0-52.0); Hemoglobin 13.6 g/dL (14.0-18.0); Immature Granulocyte Absolute 0.02 K/mm3 (0.00-0.031); Immature Granulocyte Percent A 0.3 % (0-0.5); Immature Platelet Fraction Pct 6.8 % (0.9-11.2); Lymphocytes Absolute Auto 0.84 K/mm3 (0.9-3.2); Lymphocytes Percent Auto 14.4 % (18.3-44.2); Mean Corpuscular HGB Conc 31.3 g/dl (32-36); Mean Corpuscular Hemoglobin 22.3 pg (26-34); Mean Corpuscular Volume 71.3 fl (80-100); Mean Platelet Volume 10.9 fl (7.4-10.4); Monocytes Absolute Auto 0.4 K/mm3 (0.1-0.6); Neutrophils Absolute Auto 4.5 K/mm3 (1.3-6.7); Neutrophils Percent Auto 76.9 % (45.5-73.1); Platelet Count Result 146 k/mm3 (150-375); Red Cell Distribution Width 19.2 % (11.5-14.5); White Blood Count 5.8 K/mm3 (4.5-10.0)
[2023-07-02 11:01] LABS: Alanine Aminotransferase 21 U/L (6-50); Albumin Level 4.4 g/dL (3.5-5.1); Alkaline Phosphatase 83 U/L (38-126); Anion Gap 8 mmol/L (4-12); Aspartate Amino Transferase 28 U/L (17-59); Bilirubin,Total 0.9 mg/dL (0.2-1.3); Blood Urea Nitrogen 12 mg/dL (9-20); Calcium 9.6 mg/dL (8.4-10.2); Carbon Dioxide 23 mmol/L (22-30); Chloride 109 mmol/L (98-107); Estimated CRCL calculation 100 ml/min; Estimated Glomerular Filt Rate > 60; Glucose 102 mg/dL (65-110); Lipase 53 U/L (23-300); Potassium 3.2 mmol/L (3.4-5.0); Sodium 140 mmol/L (137-145)
[2023-07-02 11:06] LABS: Appearance Urine Clear (Clear); Bilirubin Urine Negative (Negative); Blood Urine Negative (Negative); Color Urine Dark Yellow (Yellow); Glucose Urine UA Negative (Negative); Ketones Urine Trace mg/dL (Negative); Leukocyte Esterase Ur Negative LEU/UL (Negative); Nitrate Urine Negative (Negative); Protein Urine 2+ mg/dL (Negative); Specific Grav Ur 1.035 (1.001-1.035); Urobilinogen Urine 0.2 mg/dL (<2.0)
[2023-07-02 11:17] LABS: Anisocytosis 1+; Microcytosis 1+ (NORMAL); Platelet Estimate Decreased (Adequate); Schistocytes None Seen
[2023-07-02 11:20] LABS: Add Urine Microscopic? YES
[2023-07-02 11:21] LABS: RBC Urine 0-2 /hpf (0-2); Squamous Epithelial Cell Urine Occasional /hpf (Few); WBC Urine 0-3 /hpf (0-3)
[2023-07-02 11:30] VITALS: BP 142/90; PULSE 88; RESP 16; TEMP 36.4; O2SAT 98
[2023-07-02] MEDS: POTASSIUM CHLORIDE 20 MEQ ER TABLET 40 MEQ PO (11:42)
[2023-07-02 11:50] LABS: Magnesium 1.9 mg/dL (1.6-2.3)
[2023-07-02 12:23] VITALS: BP 146/98; PULSE 86; RESP 16; TEMP 36.6; O2SAT 98
== END 2023-07-02 12:25 | disposition home or self-care (01) ==
PROVIDERS: Emergency Provider Physician Assistant; PCP Emergency Medicine
DX: R10.9 Unspecified abdominal pain (principal); I10 Essential (primary) hypertension
CPT/HCPCS: 36415; 74176; 80053; 81001; 83690; 83735; 85025; 85055; 99284; A9270

== ENCOUNTER 2023-07-03 11:46 | Emergency (ER) | payer OTHER, SELFPAY ==
[2023-07-03 11:55] VITALS: BP 168/91; RESP 18; TEMP 36.6; O2SAT 98
--- NOTE | 2023-07-03 13:16 | PC.NURSE ---
Patient did not answer page to go to a room
== END 2023-07-03 13:16 | disposition left against medical advice (07) ==
PROVIDERS: Emergency Provider Emergency Medicine; PCP Emergency Medicine
DX: Z53.21 Procedure and treatment not carried out due to patient leaving prior to being seen by health care provider (principal); I10 Essential (primary) hypertension
CPT/HCPCS: 99199; A4565

== ENCOUNTER 2023-08-03 22:01 | Inpatient (IN) | payer OTHER, SELFPAY ==
--- NOTE | ~2023-08-03 | CT_ITS ---
EXAMINATION: CT brain wo con DATE: 08/03/2023 22:56 INDICATION: ams, etoh . TECHNIQUE: Computed tomography (CT) of the head was performed without intravenous contrast. The mA wa s adjusted according to patient size. Iterative reconstruction technique was employed. The dose-lengt h product was 605.33 mGy-cm. COMPARISON: 09/29/2022. FINDINGS: No acute intracranial hemorrhage or extra-axial fluid collection. No hydrocephalus, mass, or herniation. No acute ischemic infarct. Unremarkable dural venous sinus attenuation. No acute osseous abnormality. Mild ethmoid and left frontal mucosal thickening, the remaining aerated spaces are clear. Mild chronic white matter change. IMPRESSION: No acute intracranial process. Reviewed, dictated and finalized at location K.
--- NOTE | 2023-08-03 22:20 | ED.AMS ---
HPI - Altered Mental Status General Chief Complaint: Alcohol Stated Complaint: etoh, ams Source: patient and EMS Mode of arrival: EMS Limitations: clinical condition and intoxication History of Present Illness HPI narrative: Patient is a 53-year-old male who presents the ED via EMS with report of altered mental status. Per EMS report, patient was found passed out on a sidewalk. Called out by bystander. Appeared to be inebriated. Patient did admit to drinking alcohol. Able to move all extremities. Knows his name and birthday. Unable to tell me anything further. No obvious signs of trauma. Related Data Allergies Allergy/AdvReac Type Severity Reaction Status Date / Time Unable to Assess Allergy Verified 08/03/23 23:16 Review of Systems Review of Systems: ROS unobtainable: Yes unobtainable due to medical condition Exam Narrative: GENERAL: Intoxicated appearing, intermittently crying and moaning. HEAD: Normocephalic, atraumatic. EYES: PERRL/EOMI, ayden conjunctival injection. RESPIRATORY: Airway patent, respirations nonlabored. Clear to auscultation bilaterally, no rales, rhonchi, wheezing. CARDIOVASCULAR: Regular rate and rhythm without murmurs, rubs, or gallops. ABDOMINAL: Soft, no appreciable tenderness, nondistended. Normoactive BS. MUSCULOSKELETAL: Moves all extremities. No gross deformities. SKIN: Warm, dry, normal color. NEURO: Alert to self, knows his name and birthday. Difficulty answering other questions. Speech garbled. Able to follow some commands but easily distracted. Able to move all extremities. No ataxic movements. PSYCHIATRIC: Tearful, intermittently agitated. Course Vital Signs Vital signs: Vital Signs Pulse Rate 86 08/04/23 00:31 Respiratory Rate 14 08/04/23 00:31 Blood Pressure 150/86 H 08/04/23 00:31 Pulse Oximetry 92 08/04/23 00:31 Temperature 97.8 F 08/04/23 01:12 Pulse Rate 86 08/04/23 00:31 Respiratory Rate 14 08/04/23 00:31 Blood Pressure 150/86 H 08/04/23 00:31 Pulse Oximetry 92 08/04/23 00:31 MDM - Altered Mental Status MDM Narrative Medical decision making narrative: Patient presented to ED via EMS with altered mental status, found on sidewalk outside, appeared inebriated. Admitted to drinking alcohol. Vital signs are stable upon arrival. Able to move all extremities. No appreciable focal deficits. Altered mental status workup obtained. CT brain negative. Basic laboratory studies are unremarkable. No significant abnormalities. Electrolytes WNL. Urinalysis is clear. Urine drug screen negative. Acetaminophen and salicylates negative. Alcohol level 238. CK resulted elevated to nearly 5000. Patient given 2L of fluid in the ED. Started on continuous fluids. Will be admitted for further rehydration for rhabdo. Discussed case with Dr. Magaña, hospitalist, accepted patient for admission. Advised to start continue fluids at 200 cc/hour. Repeat labs in a.m. On re-evaluation, patient sleeping, but easily arousable. Again admits to drinking tonight. He drank a 5th of Bicardi tonight. He does like to drink frequently. States he is currently homeless. Denies SI or HI. Medical Records Attestation: I reviewed the patient's medical records. Lab Data Attestation: I reviewed the patient's lab results. 08/03/23 23:25 08/03/23 23:25 Labs: Lab Results 08/03/23 08/03/23 Range/Units 23:25 23:30 WBC 5.7 (4.5-10.0) K/mm3 RBC 5.80 (4.6-6.20) M/mm3 Hgb 13.6 L (14.0-18.0) g/dL Hct 41.9 L (42.0-52.0) % MCV 72.2 L (80-100) fl MCH 23.4 L (26-34) pg MCHC 32.5 (32-36) g/dl RDW 19.5 H (11.5-14.5) % Plt Count 184 (150-375) k/mm3 MPV 10.9 H (7.4-10.4) fl Immature Gran % (Auto) 0.2 (0-0.5) % Neut % (Auto) 68.9 (45.5-73.1) % Lymph % (Auto) 22.6 (18.3-44.2) % [place] % (Auto) 6.9 (2.6-8.5) % Eos % (Auto) 0.7 (0-4.4) % Baso % (Auto) 0.7 (0.2-1.2) % Lymph # (Auto) 1.2
[2023-08-03] MEDS: SODIUM CHLORIDE 0.9% IV 1,000 ML 999 ML IV CONT (22:35)
[2023-08-03 23:33] LABS: Basophils Percent Auto 0.7 % (0.2-1.2); Eosinophils Percent Auto 0.7 % (0-4.4); Hematocrit 41.9 % (42.0-52.0); Hemoglobin 13.6 g/dL (14.0-18.0); Immature Granulocyte Absolute 0.01 K/mm3 (0.00-0.031); Immature Granulocyte Percent A 0.2 % (0-0.5); Lymphocytes Absolute Auto 1.28 K/mm3 (0.9-3.2); Lymphocytes Percent Auto 22.6 % (18.3-44.2); Mean Corpuscular HGB Conc 32.5 g/dl (32-36); Mean Corpuscular Hemoglobin 23.4 pg (26-34); Mean Corpuscular Volume 72.2 fl (80-100); Mean Platelet Volume 10.9 fl (7.4-10.4); Monocytes Absolute Auto 0.4 K/mm3 (0.1-0.6); Monocytes Percent Auto 6.9 % (2.6-8.5); Neutrophils Absolute Auto 3.9 K/mm3 (1.3-6.7); Neutrophils Percent Auto 68.9 % (45.5-73.1); Platelet Count Result 184 k/mm3 (150-375); Red Cell Distribution Width 19.5 % (11.5-14.5); White Blood Count 5.7 K/mm3 (4.5-10.0)
[2023-08-03 23:38] LABS: Appearance Urine Clear (Clear); Bilirubin Urine Negative (Negative); Blood Urine Negative (Negative); Color Urine Yellow (Yellow); Glucose Urine UA Negative (Negative); Ketones Urine Negative (Negative); Leukocyte Esterase Ur Negative LEU/UL (Negative); Nitrate Urine Negative (Negative); Protein Urine Negative (Negative); Specific Grav Ur 1.005 (1.001-1.035); Urobilinogen Urine 0.2 mg/dL (<2.0)
[2023-08-03 23:46] LABS: Acetaminophen < 10 ug/mL (10-30); Ethanol 238 mg/dL (<10); Salicylate < 1.0 mg/dL (2-20)
[2023-08-03 23:48] LABS: Add Urine Microscopic? NO
[2023-08-03 23:48] LABS: Alanine Aminotransferase 39 U/L (6-50); Albumin Level 4.2 g/dL (3.5-5.1); Alkaline Phosphatase 70 U/L (38-126); Anion Gap 10 mmol/L (4-12); Aspartate Amino Transferase 114 U/L (17-59); Bilirubin,Total 0.6 mg/dL (0.2-1.3); Blood Urea Nitrogen 6 mg/dL (9-20); Calcium 9.1 mg/dL (8.4-10.2); Carbon Dioxide 25 mmol/L (22-30); Chloride 108 mmol/L (98-107); Estimated Glomerular Filt Rate > 60; Glucose 85 mg/dL (65-110); Potassium 3.4 mmol/L (3.4-5.0); Sodium 143 mmol/L (137-145)
[2023-08-03 23:50] LABS: Anisocytosis 1+; Microcytosis 1+ (NORMAL); Platelet Estimate Adequate (Adequate); Schistocytes None Seen
[2023-08-03 23:56] LABS: Amphetamine Screen Urine Negative (Negative); Barbiturate Screen Urine Negative (Negative); Benzodiazepines Screen Urine Negative (Negative); Cannabinoid Screen Urine Negative (Negative); Cocaine Screen Urine Negative (Negative); Methadone Screen Urine Negative (Negative); Opiate Screen Urine Negative (Negative); Phencyclidine Screen Urine Negative (Negative)
[2023-08-04] VITALS (11 sets, daily range): BP systolic 147–162; BP diastolic 86–94; PULSE 72–104; RESP 14–18; TEMP 36.4–36.8; O2SAT 92–100; BMI 31.8
[2023-08-04 00:15] LABS: Creatine Kinase 4579 U/L (55-170)
[2023-08-04] MEDS: SODIUM CHLORIDE 0.9% IV 1,000 ML 999 ML IV CONT (00:25)
[2023-08-04 00:47] LABS: Magnesium 2.2 mg/dL (1.6-2.3)
[2023-08-04] MEDS: SODIUM CHLORIDE 0.9% IV 1,000 ML 125 ML IV CONT (01:47)
[2023-08-04 02:15] LABS: Glucose Point of Care 73 mg/dl (65-105)
--- NOTE | 2023-08-04 03:38 | ADMGEN ---
This patient, Azael Crews, was admitted to 3 [facility] Surg Room 303-01. Patient/family oriented to hospital policies and general routines including ID bracelet, bed and alarms, visiting hours, pain management, procedures, bathroom and other care routines, personal items, smoking policy, room service/diet, and visiting hours. Information on how to activate the Rapid Response Team has been discussed. Patient/Family are encouraged to report perceived risks to care and to ask questions if they do not understand what they are told or what they should do.
[2023-08-04 06:12] LABS: Basophils Percent Auto 0.9 % (0.2-1.2); Eosinophils Absolute Auto 0.1 K/mm3 (0-0.3); Hematocrit 42.3 % (42.0-52.0); Hemoglobin 13.3 g/dL (14.0-18.0); Immature Granulocyte Absolute 0.01 K/mm3 (0.00-0.031); Immature Granulocyte Percent A 0.2 % (0-0.5); Lymphocytes Absolute Auto 1.51 K/mm3 (0.9-3.2); Mean Corpuscular HGB Conc 31.4 g/dl (32-36); Mean Corpuscular Hemoglobin 22.9 pg (26-34); Mean Corpuscular Volume 72.9 fl (80-100); Mean Platelet Volume 11.6 fl (7.4-10.4); Monocytes Absolute Auto 0.3 K/mm3 (0.1-0.6); Monocytes Percent Auto 7.4 % (2.6-8.5); Neutrophils Absolute Auto 2.5 K/mm3 (1.3-6.7); Neutrophils Percent Auto 55.5 % (45.5-73.1); Platelet Count Result 183 k/mm3 (150-375); Red Cell Distribution Width 19.8 % (11.5-14.5); White Blood Count 4.4 K/mm3 (4.5-10.0)
[2023-08-04 06:23] LABS: Alanine Aminotransferase 35 U/L (6-50); Albumin Level 3.8 g/dL (3.5-5.1); Alkaline Phosphatase 62 U/L (38-126); Anion Gap 8 mmol/L (4-12); Aspartate Amino Transferase 101 U/L (17-59); Bilirubin,Total 0.4 mg/dL (0.2-1.3); Blood Urea Nitrogen 5 mg/dL (9-20); Calcium 8.4 mg/dL (8.4-10.2); Carbon Dioxide 23 mmol/L (22-30); Chloride 114 mmol/L (98-107); Estimated CRCL calculation 98 ml/min; Estimated Glomerular Filt Rate > 60; Glucose 105 mg/dL (65-110); Potassium 3.6 mmol/L (3.4-5.0); Sodium 145 mmol/L (137-145)
[2023-08-04 06:35] LABS: Magnesium 2.1 mg/dL (1.6-2.3)
[2023-08-04 06:38] LABS: Creatine Kinase 3165 U/L (55-170)
[2023-08-04 07:22] LABS: Anisocytosis 1+; Platelet Estimate Adequate (Adequate); Schistocytes None Seen
[2023-08-04] MEDS: SODIUM CHLORIDE 0.9% IV 1,000 ML 200 ML IV CONT ×3 (08:41→20:36)
--- NOTE | 2023-08-04 09:32 | PM.IMHP ---
H&P: HPI History of Present Illness Date/Time: 08/04/23 09:32 Chief Complaint: Altered mental status Narrative: This is a 53-year-old male who presents to the ED via EMS with report of altered mental status. Per EMS report patient was found passed out on the sidewalk. EMS was called out by bystander. He appeared to be inebriated. Patient also admitted to drinking alcohol. He was able to move all extremities. No signs of trauma was noted. On ED arrival his vitals were stable. No focal deficits were noted. CT head was done which was negative for any acute abnormality. Laboratory workup was unremarkable. Acetaminophen and salicylate were negative. Urine drug screen was negative. Urinalysis clear. Alcohol level was 238. CK level was nearly 5000. He received IV fluid and is admitted for rhabdomyolysis. He admitted to drinking frequently. Currently homeless. He is admitted in this setting. He Is more awake today Review of Systems Review of Systems: - CONSTITUTIONAL: Denies weight loss, fever and chills. - HEENT: Denies changes in vision and hearing - RESPIRATORY: Denies SOB and cough. - CV: Denies palpitations and CP. - GI: Denies abdominal pain, nausea, vomiting and diarrhea. - : Denies dysuria and urinary frequency. - MSK: Denies myalgia and joint pain. Reports some back pain - SKIN: Denies rash and pruritus. - NEUROLOGICAL: Denies headache and syncope. - PSYCHIATRIC: Denies recent changes in mood. Denies anxiety and depression. [facility] Social History Social History Smoking status: Light tobacco smoker Tobacco type: cigars Second hand tobacco smoke exposure: Yes Additional smoking assessment comments: started up couple weeks ago Alcohol intake: current Drinks per week: 1 Substance use: never Substance use type: does not use Spiritual care concerns: No Meds Home Medications and Allergies Home Medications Medication Instructions Recorded Confirmed Type losartan 50 mg tablet 50 mg PO DAILY 08/04/23 08/04/23 History rivaroxaban 15 mg (42)-20 mg (9) 15 ea PO DAILY dvt 08/04/23 08/04/23 History tablets in a starter pack (Xarelto DVT-PE Treatment 30-Day Starter) Allergies Allergy/AdvReac Type Severity Reaction Status Date / Time Unable to Assess Allergy Verified 08/03/23 23:16 Vital Signs Vital Signs - 24 hr 08/04/23 00:31 08/04/23 01:12 08/04/23 03:41 Temperature 97.8 F 97.8 F Pulse Rate 86 87 Respiratory Rate 14 18 Blood Pressure 150/86 H 149/94 H Pulse Oximetry 92 100 Oxygen Delivery 08/04/23 04:00 08/04/23 08:40 Temperature Pulse Rate 84 Respiratory Rate Blood Pressure Pulse Oximetry 97 Oxygen Delivery Room Air Exam Narrative: GENERAL: Alert and oriented x3 no acute distress HEAD: Normocephalic, atraumatic. RESPIRATORY: Airway patent, respirations nonlabored. Clear to auscultation bilaterally, no rales, rhonchi, wheezing. CARDIOVASCULAR: Regular rate and rhythm without murmurs, rubs, or gallops. ABDOMINAL: Soft, no appreciable tenderness, nondistended. Normoactive BS. MUSCULOSKELETAL: Moves all extremities. No gross deformities. SKIN: Warm, dry, normal color. NEURO: Alert and oriented x3 moving all extremities PSYCHIATRIC: Normal mood cooperative H&P: Results Labs Labs: Short CBC 08/03/23 08/04/23 Range/Units 23:25 05:43 WBC 5.7 4.4 L (4.5-10.0) K/mm3 Hgb 13.6 L 13.3 L (14.0-18.0) g/dL Hct 41.9 L 42.3 (42.0-52.0) % Plt Count 184 183 (150-375) k/mm3 BMP 08/03/23 08/04/23 23:25 05:43 Sodium 143 145 Potassium 3.4 3.6 Chloride 108 H 114 H Carbon Dioxide 25 23 BUN 6 L 5 L Creatinine 0.90 0.80 Glucose 85 105 Calcium 9.1 8.4 Cardiac Enzymes 08/03/23 08/04/23 Range/Units 23:25 05:43 Total Creatine Kinase 4579 H 3165 H (55-170) U/L Liver Function 08/03/23 08/04/23 Range
--- NOTE | 2023-08-04 11:13 | PC.NURSE ---
Pt had 1/3 bottle of bacardi silver in [employer] bag among personal belongings. Pt was educated that bottle must be removed because alcohol is not permitted in rooms. Bottle was confiscated pt was compliant. Security was notified and came to retrieve the bottle. Nurse notified to continue to monitor pt.
[2023-08-04] MEDS: RIVAROXABAN 20 MG TABLET PO (16:47)
[2023-08-04 23:51] LABS: Glucose Point of Care 92 mg/dl (65-105)
[2023-08-05] VITALS (7 sets, daily range): BP systolic 137–145; BP diastolic 80–84; PULSE 55–90; RESP 14–18; TEMP 36.3–36.6; O2SAT 100
[2023-08-05] MEDS: SODIUM CHLORIDE 0.9% IV 1,000 ML 200 ML IV CONT ×4 (01:26→23:31)
[2023-08-05 05:48] LABS: Glucose Point of Care 92 mg/dl (65-105)
[2023-08-05 06:31] LABS: Basophils Percent Auto 0.7 % (0.2-1.2); Eosinophils Absolute Auto 0.1 K/mm3 (0-0.3); Eosinophils Percent Auto 1.9 % (0-4.4); Hematocrit 39.1 % (42.0-52.0); Hemoglobin 12.1 g/dL (14.0-18.0); Immature Granulocyte Absolute 0.01 K/mm3 (0.00-0.031); Immature Granulocyte Percent A 0.2 % (0-0.5); Lymphocytes Absolute Auto 1.52 K/mm3 (0.9-3.2); Lymphocytes Percent Auto 28.4 % (18.3-44.2); Mean Corpuscular HGB Conc 30.9 g/dl (32-36); Mean Corpuscular Volume 74.2 fl (80-100); Mean Platelet Volume 11.7 fl (7.4-10.4); Monocytes Absolute Auto 0.4 K/mm3 (0.1-0.6); Monocytes Percent Auto 8.2 % (2.6-8.5); Neutrophils Absolute Auto 3.2 K/mm3 (1.3-6.7); Neutrophils Percent Auto 60.6 % (45.5-73.1); Platelet Count Result 172 k/mm3 (150-375); Red Blood Count 5.27 M/mm3 (4.6-6.20); Red Cell Distribution Width 19.4 % (11.5-14.5); White Blood Count 5.4 K/mm3 (4.5-10.0)
[2023-08-05 06:52] LABS: Alanine Aminotransferase 31 U/L (6-50); Albumin Level 3.5 g/dL (3.5-5.1); Alkaline Phosphatase 79 U/L (38-126); Anion Gap 5 mmol/L (4-12); Aspartate Amino Transferase 74 U/L (17-59); Bilirubin,Total 0.4 mg/dL (0.2-1.3); Blood Urea Nitrogen 9 mg/dL (9-20); Calcium 8.7 mg/dL (8.4-10.2); Carbon Dioxide 22 mmol/L (22-30); Chloride 112 mmol/L (98-107); Estimated CRCL calculation 98 ml/min; Estimated Glomerular Filt Rate > 60; Glucose 80 mg/dL (65-110); Magnesium 1.7 mg/dL (1.6-2.3); Potassium 3.5 mmol/L (3.4-5.0); Sodium 139 mmol/L (137-145)
[2023-08-05 07:01] LABS: Creatine Kinase 2047 U/L (55-170)
[2023-08-05 07:27] LABS: Platelet Estimate Adequate (Adequate); Schistocytes None Seen
[2023-08-05 07:28] LABS: Anisocytosis 1+; Microcytosis 1+ (NORMAL)
[2023-08-05] MEDS: LORazepam INJ (*CRX) 2 MG/ML VIAL 1 MG IV PUSH (10:07)
[2023-08-05] MEDS: THIAMINE HCL 200 MG/2 ML VIAL 100 MG IV PUSH (10:07)
[2023-08-05] MEDS: FOLIC ACID 1 MG/0.2 ML INJ IV PUSH (10:07)
[2023-08-05] MEDS: LOSARTAN POTASSIUM 50 MG TABLET PO (10:07)
--- NOTE | 2023-08-05 11:28 | PM.IMPN ---
Progress Note: A&P Assessment and Plan (1) Alcoholic intoxication: Qualifiers: Complication of substance-induced condition: uncomplicated Qualified Code(s): F10.920 - Alcohol use, unspecified with intoxication, uncomplicated Code(s): F10.929 - Alcohol use, unspecified with intoxication, unspecified Status: Acute (2) Rhabdomyolysis: Qualifiers: Rhabdomyolysis type: non-traumatic Qualified Code(s): M62.82 - Rhabdomyolysis Code(s): M62.82 - Rhabdomyolysis Status: Acute (3) Homelessness: Code(s): Z59.00 - Homelessness unspecified Status: Acute Plan This is a 53-year-old male who presents to the ED via EMS with report of altered mental status. Per EMS report patient was found passed out on the sidewalk. EMS was called out by bystander. He appeared to be inebriated. Patient also admitted to drinking alcohol. He was able to move all extremities. No signs of trauma was noted. On ED arrival his vitals were stable. No focal deficits were noted. CT head was done which was negative for any acute abnormality. Laboratory workup was unremarkable. Acetaminophen and salicylate were negative. Urine drug screen was negative. Urinalysis clear. Alcohol level was 238. CK level was nearly 5000. He received IV fluid and is admitted for rhabdomyolysis. He admitted to drinking frequently. Currently homeless. He is admitted in this setting. Watch for alcohol withdrawal Monitor CK level. IV fluid to continue thiamine IV daily with folic acid CIWA protocol Right arm brachial vein DVT detected in April 2023. On Xarelto which will be continued Homeless care coordination consult. Hypertension on losartan which will be resumed DVT prophylaxis noted to be on Xarelto 08/04: patient was agitated in the morning, patient has anxiety, hand tremor, start Librium p.o., Ativan IV p.r.n., management per CIWA protocol CPK is trending down Kidney function is stable patient is homeless, console health care facilities inspector for assisting placement There are 2 charts for this patient and needs to be combined together. Most of his previous medical records are in another chart Subjective Date/time seen: 08/05/23 11:28 Interval history: I saw exam patient today, patient was agitated a.m. patient has anxiety, denies visual hallucination, I also denies headache, nausea vomiting Exam Narrative: GENERAL: Alert and oriented x3 no acute distress HEAD: Normocephalic, atraumatic. RESPIRATORY: Airway patent, respirations nonlabored. Clear to auscultation bilaterally, no rales, rhonchi, wheezing. CARDIOVASCULAR: Regular rate and rhythm without murmurs, rubs, or gallops. ABDOMINAL: Soft, no appreciable tenderness, nondistended. Normoactive BS. MUSCULOSKELETAL: Moves all extremities. No gross deformities. hand tremors SKIN: Warm, dry, normal color. NEURO: Alert and oriented x3 moving all extremities PSYCHIATRIC: Normal mood cooperative Objective Data Vital Signs Vital Signs: Vital Signs - 24 hr 08/04/23 14:00 08/04/23 16:00 08/04/23 21:07 Temperature 97.6 F 98.2 F Pulse Rate 94 104 H 72 Respiratory Rate 18 14 Blood Pressure 147/88 H 162/92 H Pulse Oximetry 100 100 Oxygen Delivery 08/04/23 20:00 08/05/23 00:00 08/04/23 21:12 Temperature Pulse Rate 78 90 Respiratory Rate Blood Pressure Pulse Oximetry 100 Oxygen Delivery Room Air 08/05/23 05:05 08/05/23 04:00 Temperature 97.3 F L Pulse Rate 60 88 Respiratory Rate 14 Blood Pressure 144/80 H Pulse Oximetry 100 Oxygen Delivery Intake/Output Intake/Output: Intake & Output 08/02/23 08/03/23 08/04/23 08/05/23 23:59 23:59 23:59 23:59 Intake Total 6580.0 3040.0 Output Total 350 800 Balance 6230.0 2240.0 Meds/Results Medications: Active Medications Generic Name Dose Route Start Last Admin Trade Name Freq PRN Reason Stop Dose Admin Acetaminophen 650 mg 08/04/23 02:07 Acetaminop
[2023-08-05 11:41] LABS: Glucose Point of Care 103 mg/dl (65-105)
[2023-08-05] MEDS: RIVAROXABAN 20 MG TABLET PO (17:20)
[2023-08-05] MEDS: POTASSIUM CHLORIDE 20 MEQ PACKET (FOR LIQUID) PO (17:20)
[2023-08-05] MEDS: chlordiazePOXIDE (*CRX) 25 MG CAPSULE PO ×2 (17:20→21:04)
[2023-08-05 18:05] LABS: Glucose Point of Care 119 mg/dl (65-105)
[2023-08-05 23:20] LABS: Glucose Point of Care 117 mg/dl (65-105)
[2023-08-06] VITALS (9 sets, daily range): BP systolic 137–153; BP diastolic 83–93; PULSE 58–85; RESP 16–20; TEMP 36.1–36.4; O2SAT 99–100
[2023-08-06] MEDS: SODIUM CHLORIDE 0.9% IV 1,000 ML 200 ML IV CONT (04:49)
[2023-08-06] MEDS: chlordiazePOXIDE (*CRX) 25 MG CAPSULE PO ×3 (05:09→21:16)
[2023-08-06 05:16] LABS: Glucose Point of Care 106 mg/dl (65-105)
--- NOTE | 2023-08-06 08:55 | PM.IMPN ---
Progress Note: A&P Assessment and Plan (1) Alcoholic intoxication: Qualifiers: Complication of substance-induced condition: uncomplicated Qualified Code(s): F10.920 - Alcohol use, unspecified with intoxication, uncomplicated Code(s): F10.929 - Alcohol use, unspecified with intoxication, unspecified Status: Acute (2) Rhabdomyolysis: Qualifiers: Rhabdomyolysis type: non-traumatic Qualified Code(s): M62.82 - Rhabdomyolysis Code(s): M62.82 - Rhabdomyolysis Status: Acute (3) Homelessness: Code(s): Z59.00 - Homelessness unspecified Status: Acute Plan This is a 53-year-old male who presents to the ED via EMS with report of altered mental status. Per EMS report patient was found passed out on the sidewalk. EMS was called out by bystander. He appeared to be inebriated. Patient also admitted to drinking alcohol. He was able to move all extremities. No signs of trauma was noted. On ED arrival his vitals were stable. No focal deficits were noted. CT head was done which was negative for any acute abnormality. Laboratory workup was unremarkable. Acetaminophen and salicylate were negative. Urine drug screen was negative. Urinalysis clear. Alcohol level was 238. CK level was nearly 5000. He received IV fluid and is admitted for rhabdomyolysis. He admitted to drinking frequently. Currently homeless. He is admitted in this setting. Watch for alcohol withdrawal Monitor CK level. IV fluid to continue thiamine IV daily with folic acid CIWA protocol Right arm brachial vein DVT detected in April 2023. On Xarelto which will be continued Homeless care coordination consult. Hypertension on losartan which will be resumed DVT prophylaxis noted to be on Xarelto 08/04: patient was agitated in the morning, patient has anxiety, hand tremor, start Librium p.o., Ativan IV p.r.n., management per CIWA protocol CPK is trending down Kidney function is stable 08/05 follow-up CPK level, change Librium p.o. p.r.n. patient is homeless, console resident care associate for assisting placement per resident care associate report, patient has no interest in homeless penitentiary There are 2 charts for this patient and needs to be combined together. Most of his previous medical records are in another chart Subjective Date/time seen: 08/06/23 08:55 Interval history: I saw exam patient today, patient denies visual hallucination, I also denies headache, nausea vomiting Muscle pain, Exam Narrative: GENERAL: Alert and oriented x3 no acute distress HEAD: Normocephalic, atraumatic. RESPIRATORY: Airway patent, respirations nonlabored. Clear to auscultation bilaterally, no rales, rhonchi, wheezing. CARDIOVASCULAR: Regular rate and rhythm without murmurs, rubs, or gallops. ABDOMINAL: Soft, no appreciable tenderness, nondistended. Normoactive BS. MUSCULOSKELETAL: Moves all extremities. No gross deformities. hand tremors SKIN: Warm, dry, normal color. NEURO: Alert and oriented x3 moving all extremities PSYCHIATRIC: Normal mood cooperative Objective Data Vital Signs Vital Signs: Vital Signs - 24 hr 08/05/23 14:00 08/05/23 20:58 08/05/23 21:30 Temperature 97.9 F 97.3 F L Pulse Rate 63 55 L 78 Respiratory Rate 18 16 Blood Pressure 145/81 H 137/84 Pulse Oximetry 100 100 Oxygen Delivery 08/05/23 21:30 08/06/23 00:00 08/06/23 04:00 Temperature Pulse Rate 64 85 Respiratory Rate Blood Pressure Pulse Oximetry Oxygen Delivery Room Air 08/06/23 05:22 Temperature 97.5 F L Pulse Rate 58 L Respiratory Rate 20 Blood Pressure 137/83 Pulse Oximetry 99 Oxygen Delivery Intake/Output Intake/Output: Intake & Output 08/03/23 08/04/23 08/05/23 08/06/23 23:59 23:59 23:59 23:59 Intake Total 6580.0 5890.0 1250 Output Total 350 1950 1800 Balance 6230.0 3940.0 -550 Meds/Results Medications: Active Medications Generic Name Dose Route Start Last Admin T
[2023-08-06] MEDS: POTASSIUM CHLORIDE 20 MEQ PACKET (FOR LIQUID) PO ×2 (09:06→17:16)
[2023-08-06] MEDS: FOLIC ACID 1 MG/0.2 ML INJ IV PUSH (09:06)
[2023-08-06] MEDS: LOSARTAN POTASSIUM 50 MG TABLET PO (09:06)
[2023-08-06] MEDS: THIAMINE HCL 200 MG/2 ML VIAL 100 MG IV PUSH (09:06)
[2023-08-06 09:10] LABS: Basophils Percent Auto 0.7 % (0.2-1.2); Eosinophils Absolute Auto 0.1 K/mm3 (0-0.3); Eosinophils Percent Auto 1.4 % (0-4.4); Hematocrit 44.6 % (42.0-52.0); Hemoglobin 13.6 g/dL (14.0-18.0); Immature Granulocyte Absolute 0.02 K/mm3 (0.00-0.031); Immature Granulocyte Percent A 0.3 % (0-0.5); Lymphocytes Absolute Auto 1.37 K/mm3 (0.9-3.2); Lymphocytes Percent Auto 23.6 % (18.3-44.2); Mean Corpuscular HGB Conc 30.5 g/dl (32-36); Mean Corpuscular Hemoglobin 22.8 pg (26-34); Mean Corpuscular Volume 74.8 fl (80-100); Mean Platelet Volume 10.8 fl (7.4-10.4); Monocytes Absolute Auto 0.4 K/mm3 (0.1-0.6); Monocytes Percent Auto 6.5 % (2.6-8.5); Neutrophils Absolute Auto 3.9 K/mm3 (1.3-6.7); Neutrophils Percent Auto 67.5 % (45.5-73.1); Platelet Count Result 183 k/mm3 (150-375); Red Blood Count 5.96 M/mm3 (4.6-6.20); White Blood Count 5.8 K/mm3 (4.5-10.0)
[2023-08-06 09:21] LABS: Anion Gap 5 mmol/L (4-12); Blood Urea Nitrogen 6 mg/dL (9-20); Calcium 9.3 mg/dL (8.4-10.2); Carbon Dioxide 24 mmol/L (22-30); Chloride 113 mmol/L (98-107); Estimated CRCL calculation 98 ml/min; Estimated Glomerular Filt Rate > 60; Glucose 87 mg/dL (65-110); Magnesium 1.8 mg/dL (1.6-2.3); Phosphorus 3.9 mg/dL (2.5-4.5); Sodium 142 mmol/L (137-145)
[2023-08-06 11:51] LABS: Glucose Point of Care 80 mg/dl (65-105)
[2023-08-06] MEDS: RIVAROXABAN 20 MG TABLET PO (17:17)
[2023-08-06 18:03] LABS: Glucose Point of Care 132 mg/dl (65-105)
[2023-08-06 18:18] LABS: Creatine Kinase 644 U/L (55-170)
[2023-08-06 21:22] LABS: Glucose Point of Care 96 mg/dl (65-105)
[2023-08-07] VITALS: PULSE 62
[2023-08-07 00:22] LABS: Glucose Point of Care 87 mg/dl (65-105)
[2023-08-07 04:00] VITALS: PULSE 54
[2023-08-07] MEDS: chlordiazePOXIDE (*CRX) 25 MG CAPSULE PO (05:15)
[2023-08-07 05:17] LABS: Glucose Point of Care 79 mg/dl (65-105)
[2023-08-07 06:00] VITALS: BP 142/95; PULSE 80; RESP 18; TEMP 36.2; O2SAT 99
[2023-08-07 08:00] VITALS: PULSE 61
[2023-08-07 08:06] LABS: Basophils Percent Auto 0.5 % (0.2-1.2); Eosinophils Absolute Auto 0.2 K/mm3 (0-0.3); Eosinophils Percent Auto 2.7 % (0-4.4); Hematocrit 46.4 % (42.0-52.0); Hemoglobin 14.3 g/dL (14.0-18.0); Immature Granulocyte Absolute 0.01 K/mm3 (0.00-0.031); Immature Granulocyte Percent A 0.2 % (0-0.5); Immature Platelet Fraction Pct 8.4 % (0.9-11.2); Lymphocytes Absolute Auto 1.47 K/mm3 (0.9-3.2); Lymphocytes Percent Auto 23.4 % (18.3-44.2); Mean Corpuscular HGB Conc 30.8 g/dl (32-36); Mean Corpuscular Hemoglobin 22.9 pg (26-34); Mean Corpuscular Volume 74.4 fl (80-100); Mean Platelet Volume 10.9 fl (7.4-10.4); Monocytes Absolute Auto 0.5 K/mm3 (0.1-0.6); Monocytes Percent Auto 7.3 % (2.6-8.5); Neutrophils Absolute Auto 4.1 K/mm3 (1.3-6.7); Neutrophils Percent Auto 65.9 % (45.5-73.1); Platelet Count Result 189 k/mm3 (150-375); Red Blood Count 6.24 M/mm3 (4.6-6.20); Red Cell Distribution Width 19.8 % (11.5-14.5); White Blood Count 6.3 K/mm3 (4.5-10.0)
[2023-08-07 08:15] LABS: Anion Gap 5 mmol/L (4-12); Blood Urea Nitrogen 14 mg/dL (9-20); Calcium 9.6 mg/dL (8.4-10.2); Carbon Dioxide 26 mmol/L (22-30); Chloride 109 mmol/L (98-107); Estimated CRCL calculation 88 ml/min; Estimated Glomerular Filt Rate > 60; Glucose 73 mg/dL (65-110); Magnesium 1.9 mg/dL (1.6-2.3); Phosphorus 4.4 mg/dL (2.5-4.5); Potassium 4.1 mmol/L (3.4-5.0); Sodium 140 mmol/L (137-145)
[2023-08-07 09:09] LABS: Platelet Estimate Adequate (Adequate)
[2023-08-07 09:10] LABS: Anisocytosis 1+; Microcytosis 1+ (NORMAL)
[2023-08-07 09:11] LABS: Schistocytes None Seen
--- NOTE | 2023-08-07 09:53 | PM.IMPN ---
Progress Note: A&P Assessment and Plan (1) Alcoholic intoxication: Qualifiers: Complication of substance-induced condition: uncomplicated Qualified Code(s): F10.920 - Alcohol use, unspecified with intoxication, uncomplicated Code(s): F10.929 - Alcohol use, unspecified with intoxication, unspecified Status: Acute (2) Rhabdomyolysis: Qualifiers: Rhabdomyolysis type: non-traumatic Qualified Code(s): M62.82 - Rhabdomyolysis Code(s): M62.82 - Rhabdomyolysis Status: Acute (3) Homelessness: Code(s): Z59.00 - Homelessness unspecified Status: Acute Plan This is a 53-year-old male who presents to the ED via EMS with report of altered mental status. Per EMS report patient was found passed out on the sidewalk. EMS was called out by bystander. He appeared to be inebriated. Patient also admitted to drinking alcohol. He was able to move all extremities. No signs of trauma was noted. On ED arrival his vitals were stable. No focal deficits were noted. CT head was done which was negative for any acute abnormality. Laboratory workup was unremarkable. Acetaminophen and salicylate were negative. Urine drug screen was negative. Urinalysis clear. Alcohol level was 238. CK level was nearly 5000. He received IV fluid and is admitted for rhabdomyolysis. He admitted to drinking frequently. Currently homeless. He is admitted in this setting. Watch for alcohol withdrawal Monitor CK level. IV fluid to continue thiamine IV daily with folic acid CIWA protocol Right arm brachial vein DVT detected in April 2023. On Xarelto which will be continued Homeless care coordination consult. Hypertension on losartan which will be resumed DVT prophylaxis noted to be on Xarelto 08/04: patient was agitated in the morning, patient has anxiety, hand tremor, start Librium p.o., Ativan IV p.r.n., management per CIWA protocol CPK is trending down Kidney function is stable 08/05 follow-up CPK level, change Librium p.o. p.r.n. 08/06: patient is off benzodiazepine, CIWA protocol 0, right abdomen lysis result, kidney functions normal discharge patient with home medications with refills, also continue thiamine folic acid p.o. patient is homeless, console gericare aide for assisting placement per gericare aide report, patient has no interest in homeless assisted Subjective Date/time seen: 08/07/23 09:53 Interval history: I saw exam patient today, patient denies visual hallucination, I also denies headache, nausea vomiting Muscle pain, CIWA score 0 Exam Narrative: GENERAL: Pleasant, in no acute distress. Well-nourished. - EYES: EOMI. Anicteric. - HENT: Moist mucous membranes. - LUNGS: Clear to auscultation bilaterally, no wheezing, rhonchi, or rales. - CARDIOVASCULAR: Regular rate and rhythm. No murmur. No JVD. - ABDOMEN: Soft, non-tender and non-distended. No palpable masses. - EXTREMITIES: No edema. Peripheral pulses 2+. Non-tender. - NEUROLOGIC: No focal neurological deficits. CN II-XII grossly intact. - PSYCHIATRIC: Awake, Alert and oriented x 3. Appropriate mood and affect. - SKIN: No rashes or lesions. Warm. - LYMPH: No cervical lymphadenopathy. Objective Data Vital Signs Vital Signs: Vital Signs - 24 hr 08/06/23 14:00 08/06/23 12:00 08/06/23 12:00 Temperature 97.0 F L Pulse Rate 60 58 L Respiratory Rate 16 Blood Pressure 147/87 H 147/87 H Pulse Oximetry 100 08/06/23 16:00 08/06/23 16:00 08/06/23 22:00 Temperature 97.6 F Pulse Rate 58 L 60 Respiratory Rate 16 Blood Pressure 147/87 H 153/93 H Pulse Oximetry 100 08/06/23 20:00 08/07/23 00:00 08/07/23 04:00 Temperature Pulse Rate 62 62 54 L Respiratory Rate Blood Pressure Pulse Oximetry 08/07/23 06:00 Temperature 97.2 F L Pulse Rate 80 Respiratory Rate 18 Blood Pressure 142/95 H Pulse Oximetry 99 Intake/Output Intake/Output: Intake & Output 08/04/23
[2023-08-07] MEDS: FOLIC ACID 1 MG/0.2 ML INJ IV PUSH (10:12)
[2023-08-07] MEDS: THIAMINE HCL 200 MG/2 ML VIAL 100 MG IV PUSH (10:12)
[2023-08-07] MEDS: LOSARTAN POTASSIUM 50 MG TABLET PO (10:14)
[2023-08-07] MEDS: POTASSIUM CHLORIDE 20 MEQ PACKET (FOR LIQUID) PO (10:14)
[2023-08-07 11:54] LABS: Glucose Point of Care 75 mg/dl (65-105)
--- NOTE | 2023-08-07 14:25 | PC.NURSE ---
On 08/07/23, the STEAMBOAT INSPECTOR, Jessica Guerrero, provided care and completed TRUE [employer] documentation on this patient. I have reviewed the STEAMBOAT INSPECTOR's documentation and agree with the findings.
--- NOTE | 2023-08-11 07:40 | PM.DS ---
DS: Admitting Diagnosis Discharge Date 08/07/23 Admitting Diagnosis (1) Alcoholic intoxication: ?Qualifiers: ?Complication of substance-induced condition:?uncomplicated? Qualified Code(s):?F10.920 - Alcohol use, unspecified with intoxication, uncomplicated ?Code(s): F10.929 - Alcohol use, unspecified with intoxication, unspecified ?Status:?Acute (2) Rhabdomyolysis: ?Qualifiers: ?Rhabdomyolysis type:?non-traumatic? Qualified Code(s):?M62.82 - Rhabdomyolysis ?Code(s): M62.82 - Rhabdomyolysis ?Status:?Acute (3) Homelessness: ?Code(s): Z59.00 - Homelessness unspecified ?Status:?Acute DS: Discharge Diagnosis Discharge Diagnosis (1) Alcoholic intoxication: Qualifiers: Complication of substance-induced condition: uncomplicated Qualified Code(s): F10.920 - Alcohol use, unspecified with intoxication, uncomplicated Code(s): F10.929 - Alcohol use, unspecified with intoxication, unspecified Status: Acute (2) Rhabdomyolysis: Qualifiers: Rhabdomyolysis type: non-traumatic Qualified Code(s): M62.82 - Rhabdomyolysis Code(s): M62.82 - Rhabdomyolysis Status: Acute (3) Homelessness: Code(s): Z59.00 - Homelessness unspecified Status: Acute DS: Summary Hospital Course Hospital Course: This is a 53-year-old male who presents to the ED via EMS with report of altered mental status. Per EMS report patient was found passed out on the sidewalk. EMS was called out by bystander. He appeared to be inebriated. Patient also admitted to drinking alcohol. He was able to move all extremities. No signs of trauma was noted. On ED arrival his vitals were stable. No focal deficits were noted. CT head was done which was negative for any acute abnormality. Laboratory workup was unremarkable. Acetaminophen and salicylate were negative. Urine drug screen was negative. Urinalysis clear. Alcohol level was 238. CK level was nearly 5000. He received IV fluid and is admitted for rhabdomyolysis. He admitted to drinking frequently. Currently homeless. He is admitted in this setting. Watch for alcohol withdrawal Monitor CK level. IV fluid to continue thiamine IV daily with folic acid [facility] protocol Right arm brachial vein DVT detected in April 2023. On Xarelto which will be continued Homeless care coordination consult. Hypertension on losartan which will be resumed DVT prophylaxis noted to be on Xarelto 08/04: patient was agitated in the morning, patient has anxiety, hand tremor, start Librium p.o., Ativan IV p.r.n., management per [facility] protocol CPK is trending down Kidney function is stable 08/05 follow-up CPK level, change Librium p.o. p.r.n. 08/06: patient is off benzodiazepine, [facility] protocol 0, right abdomen lysis result, kidney functions normal discharge patient with home medications with refills, also continue thiamine folic acid p.o. patient is homeless, consult neonatal intensive care unit nurse for assisting placement per neonatal intensive care unit nurse report, patient has no interest in homeless long-term Time Spent with Patient Time attestation: Total time spent providing and/or coordinating discharge services: Exam Narrative: GENERAL: Pleasant, in no acute distress. Well-nourished. - EYES: EOMI. Anicteric. - HENT: Moist mucous membranes. - LUNGS: Clear to auscultation bilaterally, no wheezing, rhonchi, or rales. - CARDIOVASCULAR: Regular rate and rhythm. No murmur. No JVD. - ABDOMEN: Soft, non-tender and non-distended. No palpable masses. - EXTREMITIES: No edema. Peripheral pulses 2+. Non-tender. - NEUROLOGIC: No focal neurological deficits. CN II-XII grossly intact. - PSYCHIATRIC: Awake, Alert and oriented x 3. Appropriate mood and affect. - SKIN: No rashes or lesions. Warm. - LYMPH: No cervical lymphadenopathy. Discharge Plan Discharge Attending physician on discharge: Shabnam Mora Consulting providers: Ginette Vazquez;
== END 2023-08-07 14:25 | disposition home or self-care (01) | DRG 558 ==
LOC: ANHED 08-04 02:03 → ANH3MEDSUR 08-04 02:57
PROVIDERS: Internal Medicine; Admitting Provider Internal Medicine; Emergency Provider Physician Assistant; PCP Emergency Medicine; Visit Provider Hospitalist
DX: M62.82 Rhabdomyolysis (principal); Z59.00 Homelessness unspecified; F10.920 Alcohol use, unspecified with intoxication, uncomplicated; I10 Essential (primary) hypertension; Y90.7 Blood alcohol level of 200-239 mg/100 ml; F41.9 Anxiety disorder, unspecified; Z86.718 Personal history of other venous thrombosis and embolism
CPT/HCPCS: 36415; 70450; 80048; 80053; 80307; 81003; 82550; 82948; 83735; 84100; 85025; 85055; 96361; 96374; 96375; 99285; A9270; G0378; J2060; J3411; J7030

== ENCOUNTER 2023-09-30 12:40 | Emergency (ER) | payer OTHER, SELFPAY ==
[2023-09-30 12:44] VITALS: BP 138/86; PULSE 92; RESP 18; TEMP 36.4; O2SAT 99
--- NOTE | 2023-09-30 14:33 | ED.GENADULT ---
HPI - General Adult General Chief complaint: Ear Stated complaint: spider or bug in left ear Time Seen by Provider: 09/30/23 13:55 History of Present Illness HPI narrative: Azael Crews is a 53 y/o male who presents with reports of having pain / fullness and feeling something move around in his left ear. He states he feels the same movement sometimes in his right ear but does not have any pain NO recent fevers/ cough / runny nose No chest pain/ SOB Related Data Home Medications Medication Instructions Recorded Confirmed rivaroxaban 15 mg (42)-20 mg (9) 15 ea PO DAILY dvt 08/04/23 08/04/23 tablets in a starter pack (Xarelto DVT-PE Treatment 30-Day Starter) Allergies Allergy/AdvReac Type Severity Reaction Status Date / Time No Known Allergies Allergy Verified 09/30/23 12:47 Review of Systems Review of Systems: All systems reviewed & are unremarkable except as noted in HPI and below PMFSH Past Medical History Medical History Hypertension Surgical History Surgical History No pertinent past surgical history Social History Social History Smoking status: Never smoker Tobacco type: cigars Second hand tobacco smoke exposure: Yes Additional smoking assessment comments: started up couple weeks ago Alcohol intake: current Drinks per week: 1 Substance use: never Substance use type: does not use Spiritual care concerns: No Exam Narrative: GENERAL: Well-appearing, well-nourished, and in no acute distress. HEAD: Normocephalic, atraumatic. EYES: PERRLA and EOMI. ENT: Nares clear, no rhinorrhea or epistaxis. Mucous membranes moist. Oropharynx without tonsillar hypertrophy exudate or other lesions. Bilateral TMs + effusion + bugling No mastoid tenderness NECK: Supple. No adenopathy or masses. No carotid bruits or JVD CHEST: Clear to auscultation. No respiratory distress. No wheezes rales or rhonchi HEART: Regular rate and rhythm. No murmur heard. Normal peripheral pulses. ABDOMEN: Soft, nontender, nondistended, normal active bowel sounds. EXTREMITIES: Normal range of motion. No edema. SKIN: Warm, dry, no rash. NEURO: No focal deficits. Alert and oriented x3. PSYCH: Normal mood and affect. Course Vital Signs Vital signs: Vital Signs Temperature 36.4 C 09/30/23 12:44 Pulse Rate 92 09/30/23 12:44 Respiratory Rate 18 09/30/23 12:44 Blood Pressure 138/86 09/30/23 12:44 Pulse Oximetry 99 09/30/23 12:44 Oxygen Delivery Room Air 09/30/23 12:44 Temperature 36.4 C 09/30/23 12:44 Pulse Rate 92 09/30/23 12:44 Respiratory Rate 18 09/30/23 12:44 Blood Pressure 138/86 09/30/23 12:44 Pulse Oximetry 99 09/30/23 12:44 Oxygen Delivery Room Air 09/30/23 12:44 Medical Decision Making MDM Narrative Medical decision making narrative: Bilateral TMs + effusion + bugling No mastoid tenderness + pain on the left with slight erythema No foreign body noted on exam He has felt the movement in ears for a couple weeks but started having pain to left ear for a couple days He states he is not on any daily medications Will start pt on antibiotics for Left otitis media / Zyrtec to help with the ear effusion Encouraged Tylenol/ Motrin for pain Close follow up with PCP Return precautions provided Medical Records Medical records reviewed: Yes I reviewed the external patient's medical records. Vital Signs Vital Signs: Vital Signs Temperature 36.4 C 09/30/23 12:44 Pulse Rate 92 09/30/23 12:44 Respiratory Rate 18 09/30/23 12:44 Blood Pressure 138/86 09/30/23 12:44 Pulse Oximetry 99 09/30/23 12:44 Oxygen Delivery Room Air 09/30/23 12:44 Temperature 36.4 C 09/30/23 12:44 Pulse Rate 92 09/30/23 12:44 Respiratory Rate 18 09/30/23 12:44 Blood Pressure 13
[2023-09-30] MEDS: IBUPROFEN 600 MG TABLET PO (14:48)
== END 2023-09-30 14:54 | disposition home or self-care (01) ==
PROVIDERS: Emergency Provider Nurse Practitioner Family
DX: H66.93 Otitis media, unspecified, bilateral (principal); I10 Essential (primary) hypertension
CPT/HCPCS: 99283; A9270

== ENCOUNTER 2023-10-28 12:14 | Emergency (ER) | payer OTHER, SELFPAY ==
[2023-10-28 12:23] VITALS: BP 123/70; PULSE 60; RESP 17; TEMP 36.6; O2SAT 100
--- NOTE | 2023-10-28 15:13 | PC.NURSE ---
Called for. No response in lobby.
--- NOTE | 2023-10-28 16:25 | PC.NURSE ---
Called for. No response.
== END 2023-10-28 16:49 | disposition left against medical advice (07) ==
LOC: ANHED 16:41
DX: L29.0 Pruritus ani (principal)
CPT/HCPCS: 99199

== ENCOUNTER 2024-12-16 10:29 | Emergency (ER) | payer OTHER, SELFPAY ==
--- NOTE | 2024-12-16 10:49 | PC.NURSE ---
Patient asked this RN How long will this take? I have an appointment I have to get to. This RN informed patient that I am unable to give a wait time, but we will get him to see a provider as soon as we can. patient states 'Well I will think about staying.
--- OUTSIDE RECORDS SUMMARY | 2024-12-16 11:09 | XMS_ITS | Patient Health Record ---
Author Organization [facility]ly [facility] Address [address] [place] [address] Care Team Providers Care Management Consulting Name Role Phone Esa Jim Primary Care Provider [phone] Reason For Referral No Information Immunizations Vaccine Route Administration Date Status Comme nts COVID-19 Moderna 1ST IM Intramuscular 09/13/2020 Administered COVID-19 Moderna 2nd IM Intramuscular 10/18/2020 Administered Consents signed and reviewed. EUA date 02/2020. Patient tolerated well. Plan Of Treatment No Information Insurance Providers Payer Name Payer Address Payer Phone Subscriber Number Group Number Insured Name Patient Relationship to Insured Coverage Start Date Coverage End Date [facility] [address] [place] [address] [id number] MarsAzael Self - patient is the insured
--- NOTE | 2024-12-16 11:16 | PC.NURSE ---
patient presents to the desk stating he is going outside to smoke. this RN informed patient that he is unable to leave the ED with his IV in his arm that was placed by EMS. Patient began getting upset stating just take it out then. I informed patient that unless he was going outside, we dont need to remove the IV. Patient then states If youre so confused about what im doing, then take it out. Im not going to be held here because of this thing in my arm. I informed patien that I can take the IV out if he wants to come and go. Patient then states I will just do it my damn self. Patient then removed tape and removed the IV bleeding onto the waiting room floor. This RN attempted to give patient gauze to cover the wound, he states Im not taking nothing from you. Tech gave patient gauze and wrapped up the bleeding. jammer operator aware. patient ambulated out of department with steady gate
== END 2024-12-16 11:39 | disposition left against medical advice (07) ==
DX: S00.93XA Contusion of unspecified part of head, initial encounter (principal)
CPT/HCPCS: 99199